=== PATIENT | male | born 1950 | race Caucasian/White ===

== ENCOUNTER 2018-10-12 08:32 | Inpatient (IN) ==
[2018-10-12] MEDS ORDERED: IPRATROPIUM/ALBUTEROL 3 ML AMPUL.NEB NEB ONE ×2 (08:38→11:39)
[2018-10-12] MEDS ORDERED: PIPERACILLIN SODIUM/TAZOBACTAM 3.375 GM in DEXTROSE 5% IN WATER 50 ML IV ONE ×2 (08:54→16:30)
[2018-10-12] MEDS ORDERED: VANCOMYCIN 1,000 MG in 0.9 % SODIUM CHLORIDE 250 ML IV ONE (08:55)
[2018-10-12] MEDS ORDERED: 0.9 % SODIUM CHLORIDE 1,000 ML IV ONE (09:27)
--- NOTE | 2018-10-12 09:44 | Emergency Department Note ---
Altered Mental Status HPI - General Chief Complaint: Altered Mental Status Stated Complaint: Confusion Time Seen by Provider: 10/12/18 09:25 Source: patient, family Mode of arrival: wheelchair Limitations: no limitations - History of Present Illness HPI Narrative: On 10/10/2018 patient did have ureteroscopy, removal of bladder stone, ureteroureterostomy and left-sided stent. Patient had a stone with difficult extraction resulting in an injury to the ureter. Ureter was primarily repaired with excision of the injured portion and anastomosis. Patient did well postop day 1 however presents emergency department today with complaint of altered mentation confusion hypoxia. Patient was some pain control issues using hydrocodone and oxycodone. 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) Timing confirmed by: spouse Severity: severe Consistency of Symptoms: waxing and waning Context: other (recent surgery/recent new narcotic medication) Associated symptoms: Reports: cough, weakness, other (disoriented and confused, sleepy) - Related Data Home Medications Medication Instructions Recorded Confirmed atorvastatin 40 mg tablet 40 mg PO QDAY 12/15/15 10/03/18 meloxicam 15 mg tablet 15 mg PO QDAY 12/15/15 10/03/18 pantoprazole 40 mg tablet,delayed 40 mg PO QDAY 12/15/15 10/10/18 release fluticasone propionate 50 2 spray INTRANASAL QDAY PRN 03/27/18 10/03/18 mcg/actuation nasal spray,suspension lorazepam 2 mg tablet 2 mg SUBLINGUAL HS tab 03/27/18 10/03/18 propranolol 40 mg tablet 40 mg PO BID tab 03/27/18 10/10/18 terazosin 5 mg capsule 5 mg PO DAILY 03/27/18 10/03/18 zolpidem 5 mg tablet 12.5 mg PO HSP PRN tab 03/27/18 10/03/18 albuterol sulfate 90 mcg/actuation 1 inh INHALATION Q4H 07/31/18 10/03/18 breath activated powder inhaler RX: Fluticasone Hfa 110Mcg 1 puff INH DAILY 10/03/18 10/03/18 [Flovent Hfa 110Mcg] Previous Rx's Medication Instructions Recorded Combivent Respimat 20 mcg-100 1 puff INHALATION QID #4 g NS 05/08/18 mcg/actuation solution for inhalation cephalexin 500 mg capsule 500 mg PO BID #10 cap 10/11/18 oxycodone-acetaminophen 5 mg-325 1 tab PO Q4H #25 tab 10/11/18 mg tablet Allergies Allergy/AdvReac Type Severity Reaction Status Date / Time No Known Drug Allergies Allergy Verified 10/12/18 08:33 Review of Systems Constitutional: Denies: fever, chills Eyes: Denies: vision change ENT ED: Denies: ear pain, throat pain Cardiovascular: Denies: chest pain, palpitations Respiratory: Denies: cough, shortness of breath Gastrointestinal: Denies: abdominal pain, nausea, vomiting Genitourinary: Denies: dysuria, frequency Musculoskeletal: Denies: back pain, joint swelling Integumentary: Denies: rash, lesions Neurological: Denies: headache, weakness Psychiatric: Denies: anxiety, depression Endocrine: Denies: fatigue, heat or cold intolerance Hematological/Lymphatic: Denies: easy bleeding, easy bruising Past Medical History - Past Medical History [facility] Narrative: Family History (Last Reviewed 10/02/18 @ 11:03 by Toma Gamino CMA) Father Diabetes Heart attack Mother Emphysema of lung Medical History (Last Reviewed 10/02/18 @ 11:03 by Toma Gamino CMA) Hypoxia (Chronic) Dupuytren's contracture (Chronic) Atherosclerosis (Chronic) Nocturia (Chronic) Acute severe vertigo (Chronic) Conjunctivitis (Chronic) Sinusitis (Chronic) Decreased hearing (Chronic) Tremor (Chronic) Generalized headaches (Chronic) Plantar fibromatosis (Chronic) Screening for malignant neoplasm of prostate (Chronic) Screening for malignant neoplasm of colon (Chronic) Osteopenia (Chronic) Abdominal pain (Chronic) AMY on CPAP (Chronic) Tobacco use (Chronic) Excessive sputum (Chronic) Wheezing (Chronic) SOB (shortness of breath) on exertion (Chronic) Alcoholism (Chronic) Urinary incontinence (Chronic) Indigestion (Chronic) Trouble in sleeping (Chronic) Fatigue (Chronic) SOB (shortness of breath) (Chronic) Shoulder pain (Chronic) Anxiety (Chronic) BPH (benign prostatic hyperplasia) (Chronic) AMY (obstructive sleep apnea) (Chronic) Erectile dysfunction (Chronic) COPD (chronic obstructive pulmonary disease) (Chronic) Bronchitis (Chronic) Insomnia (Chronic) Pancreatitis (Chronic) Joint pain (Chronic) Insomnia (Chronic) Hyperlipidemia (Chronic) Hypertension, essential (Chronic) Asthma (Chronic) Acid reflux (Chronic) All Active Problems (Last Reviewed 10/02/18 @ 11:03 by Toma Gamino CMA) Hypoxia (Chronic) Dupuytren's contracture (Chronic) Atherosclerosis (Chronic) Nocturia (Chronic) Acute severe vertigo (Chronic) Conjunctivitis (Chronic) Sinusitis (Chronic) Decreased hearing (Chronic) Tremor (Chronic) Generalized headaches (Chronic) Plantar fibromatosis (Chronic) Screening for malignant neoplasm of prostate (Chronic) Screening for malignant neoplasm of colon (Chronic) Osteopenia (Chronic) Abdominal pain (Chronic) Kidney stone on right side (Acute) AMY on CPAP (Chronic) Tobacco use (Chronic) Excessive sputum (Chronic) Wheezing (Chronic) SOB (shortness of breath) on exertion (Chronic) Alcoholism (Chronic) Urinary incontinence (Chronic) Indigestion (Chronic) Trouble in sleeping (Chronic) Fatigue (Chronic) SOB (shortness of breath) (Chronic) Shoulder pain (Chronic) Anxiety (Chronic) BPH (benign prostatic hyperplasia) (Chronic) AMY (obstructive sleep apnea) (Chronic) Erectile dysfunction (Chronic) COPD (chronic obstructive pulmonary disease) (Chronic) Bronchitis (Chronic) Insomnia (Chronic) Acute exacerbation of chronic obstructive airways disease (Chronic) Alcohol withdrawal syndrome (Chronic) Pancreatitis (Chronic) Joint pain (Chronic) Insomnia (Chronic) Hyperlipidemia (Chronic) Hypertension, essential (Chronic) Asthma (Chronic) Acid reflux (Chronic) Past Surgical History (Last Updated 10/02/18 @ 11:03 by Toma Gamino CMA) History of appendectomy (Acute) H/O colonoscopy (Chronic) History of carpal tunnel release (Chronic) Medical history: Reports: COPD, DM, GERD, hyperlipidemia, hypertension, other (obstructive sleep apnea on CPAP, pancreatitis, BPH) Surgical history ED: Reports: orthopedic, other (carpal tunnel) - Social History smoking status: Current every day smoker Alcohol use: Reports: Occasionally Drug use: Reports: none Physical Exam Limitations: no limitations, other (pt is sleepy on exam dozing off but wakes with full attentiveness) General appearance: alert, in distress (tachypnea) Head: atraumatic, normocephalic Eye: Present: normal appearance, PERRL, EOMI. Absent: scleral icterus, conjunctival injection ENT: normal oropharynx, mucous membranes moist Neck: Present: trachea midline. Absent: lymphadenopathy, thyromegaly Chest: Present: symmetric chest wall rise Respiratory: Present: respiratory distress, rales/crackles (diffusely). Absent: normal lung sounds bilaterally, wheezes, stridor, accessory muscle use, prolonged expiratory phase Cardiovascular: Present: regular rate, normal rhythm. Absent: systolic murmur, diastolic murmur Abdominal: Present: soft, tenderness (left flank). 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 Patient did have some increase in his pain however he was not as confused alert did not seem quite so somnolent. CTA of his chest did not demonstrate pulmonary embolism or other acute emergent process in his chest. Patient's initial hypoxia at 86% and treated with supplemental oxygen by nonrebreather did resolve significantly and pt was on his routine 3L NC with good saturations. CT abdomen/pelvis was obtained and demonstrated double J ureteral stent was with distal curl in the bladder and proximal curl outside. Patient had return of normal mentation after Narcan however also was accompanied by pain. Family members present concerned about his pain level and with our concern for respiratory depression patient was placed on BiPAP and given Dilaudid/Ativan. Patient also given additional DuoNeb which he is already had 1 of those earlier today. Patient doing well on BiPAP. Patient was with some hypertension during stay this was controlled with pain medication primarily however 10 mg of labetalol was provided to reduce his blood pressure and patient had excellent vital signs during stay in the emergency department. Patient did not have fever or other signs or symptoms of sepsis. After he had pain control and BiPAP placed patient was checked on regularly and noted to have a easily arousable and interactive patient stating he was not in acute pain most recent check 15:30 and was pain free and easily arousable. Pt with ongoing excellent urine output. Vital Signs Temperature 98.4 F 10/12/18 08:33 Pulse Rate 96 H 10/12/18 08:33 Respiratory Rate 20 07/27/19 08:33 Blood Pressure 151/80 07/27/19 08:33 Pulse Oximetry (%) 88 L 10/12/18 08:33 Temperature 103.5 F H 10/12/18 18:06 Pulse Rate 111 H 10/12/18 18:06 Respiratory Rate 16 10/12/18 18:06 Blood Pressure 150/73 10/12/18 18:06 Pulse Oximetry (%) 93 10/12/18 18:06 Altered Mental Status - [facility] Narrative Medical decision making narrative: 68-year-old male presenting with a chief complaint of altered mental status confusion. Patient with recent stent and stone removal yesterday. Patient then placed on combination of hydrocodone and oxycodone resulting in some difficulty controlling pain yesterday evening he took 2 oxycodone right before bed woke up this morning confused having some incontinence. Also concern for difficulty breathing feeling like he could not get enough air. Symptoms have since improved since he woke up this morning. At time of evaluation patient was sleeping he really did not want to stay awake during the initial history and physical basically dozing off intermittently. Patient was complaining of pain. Patient noted to have malposition of a urinary stent after intervention 2 days ago discussed case with urology and Dr. Fox will return to the area to definitively address his issue today. Also discussed the case with Dr. Hyman and he was also willing to accept at [facility] if emergent transfer was necessary. Patient did develop fever while in the emergency department. Patient with defined atelectasis on CT angiogram chest. Dr. Fox presented to the emergency department as quickly as he possibly could and evaluated the patient. We were able to hemodynamically stabilize the patient during his time in the ED. Patient did develop a fever right at the very end of his stay. Patient had received 2 doses of Zosyn as well as vancomycin during this interval. Patient interviewed and examined and CT scan reviewed by Dr. Fox and our consensus medical opinion at this time is that patient most likely has findings secondary to postoperative atelectasis, and excessive narcotic use at home. Patient does have position alteration of his stent and will be taken to the operating room for stent replacement. - Differential Diagnosis Likely: altered mental status, delirium. Unlikely: alcoholic intoxication, dementia, hypoglycemia, hyponatremia, subarachnoid hemorrhage, sepsis - Lab Data Result diagrams: 10/12/18 17:25 10/12/18 16:43 Lab Results 10/12/18 10/12/18 10/12/18 Range/Units 08:49 08:49 08:50 WBC 9.2 (4.5-11.0) K/mcL RBC 3.76 L (4.50-5.90) M/mcL Hgb 11.7 L (13.5-16.5) g/dL Hct 35.3 L (41.0-55.0) % MCV 93.8 (80.0-100.0) fL MCH 31.2 (26.0-34.0) pg MCHC 33.2 (31.0-36.0) g/dL RDW 13.5 (11.5-14.5) % Plt Count 199 (140-440) K/mcL MPV 8.3 (7.4-10.4) fL Gran % 70.9 (38.0-78.0) % Lymph % (Auto) 14.3 L (15.5-49.0) % [place] % (Auto) 11.9 (1.0-12.0) % Eos % (Auto) 2.7 (0.0-7.0) % Baso % (Auto) 0.2 (0.0-2.0) % Gran # 6.6 (1.8-8.0) K/mcL Lymph # (Auto) 1.3 L (1.5-4.8) K/mcL [place] # (Auto) 1.1 H (0.1-0.9) K/mcL Eos # (Auto) 0.2 (0.0-0.7) K/mcL Baso # (Auto) 0 (0.0-0.3) K/mcL VBG Lactic Acid (0.5-2.0) mmol/L Sodium 139 (133-145) mmol/L Potassium 3.8 (3.3-5.1) mmol/L Chloride 102 (96-108) mmol/L Carbon Dioxide 30 (22-30) mmol/L Anion Gap 7.0 L (8-16) BUN 16 (8-23) mg/dl Creatinine 0.9 (0.7-1.2) mg/dl GFR Calculation 87 Glucose 128 H (70-105) mg/dL Calcium 8.8 (8.6-10.4) mg/dl Total Bilirubin 0.6 (0.0-1.0) mg/dL AST 22 (0-37) U/l ALT 8 (0-40) U/l Alkaline Phosphatase 73 (39-117) U/L Total Protein 6.2 (5.9-8.4) gm/dL Albumin 3.5 (3.2-5.2) gm/dL Globulin 2.7 (2.2-3.7) gm/dL Albumin/Globulin Ratio 1.3 (1.0-2.3) Procalcitonin < 0.05 (<0.10) ng/mL Urine Color Urine Appearance Urine pH (5.0-9.0) Ur Specific [place]land (1.000-1.035) Urine Protein (NEG) mg/dL Urine Glucose (UA) (NEG) mg/dL Urine Ketones (NEG) mg/dL Urine Occult Blood (<0.03) mg/dL Urine Nitrate (NEG) Urine Bilirubin (NEG) mg/dL Urine Urobilinogen (NEG) mg/dL Ur Leukocyte Esterase (NEG) /uL Urine RBC (0-1) /hpf Urine WBC (0-4) /hpf Ur Squamous Epith Cells (0-4) /hpf Urine Bacteria (0) /hpf Urine Mucus (0) /hpf Ur Culture Indicated? 10/12/18 10/12/18 10/12/18 Range/Units 09:10 10:55 16:43 WBC (4.5-11.0) K/mcL RBC (4.50-5.90) M/mcL Hgb (13.5-16.5) g/dL Hct (41.0-55.0) % MCV (80.0-100.0) fL MCH (26.0-34.0) pg MCHC (31.0-36.0) g/dL RDW (11.5-14.5) % Plt Count (140-440) K/mcL MPV (7.4-10.4) fL Gran % (38.0-78.0) % Lymph % (Auto) (15.5-49.0) % [place] % (Auto) (1.0-12.0) % Eos % (Auto) (0.0-7.0) % Baso % (Auto) (0.0-2.0) % Gran # (1.8-8.0) K/mcL Lymph # (Auto) (1.5-4.8) K/mcL [place] # (Auto) (0.1-0.9) K/mcL Eos # (Auto) (0.0-0.7) K/mcL Baso # (Auto) (0.0-0.3) K/mcL VBG Lactic Acid 0.5 (0.5-2.0) mmol/L Sodium 140 (133-145) mmol/L Potassium 3.7 (3.3-5.1) mmol/L Chloride 101 (96-108) mmol/L Carbon Dioxide 29 (22-30) mmol/L Anion Gap 10.0 (8-16) BUN 12 (8-23) mg/dl Creatinine 0.8 (0.7-1.2) mg/dl GFR Calculation 91 Glucose 96 (70-105) mg/dL Calcium 8.8 (8.6-10.4) mg/dl Total Bilirubin 1.0 (0.0-1.0) mg/dL AST 25 (0-37) U/l ALT 7 (0-40) U/l Alkaline Phosphatase 73 (39-117) U/L Total Protein 5.9 (5.9-8.4) gm/dL Albumin 3.3 (3.2-5.2) gm/dL Globulin 2.6 (2.2-3.7) gm/dL Albumin/Globulin Ratio 1.3 (1.0-2.3) Procalcitonin (<0.10) ng/mL Urine Color Red Urine Appearance Hazy Urine pH 6.0 (5.0-9.0) Ur Specific Inland 1.012 (1.000-1.035) Urine Protein 100 A (NEG) mg/dL Urine Glucose (UA) Negative (NEG) mg/dL Urine Ketones Neg (NEG) mg/dL Urine Occult Blood >=1.0 A (<0.03) mg/dL Urine Nitrate Neg (NEG) Urine Bilirubin Neg (NEG) mg/dL Urine Urobilinogen Neg (NEG) mg/dL Ur Leukocyte Esterase 250 A (NEG) /uL Urine RBC > 182 H (0-1) /hpf Urine WBC 96 H (0-4) /hpf Ur Squamous Epith Cells < 1 (0-4) /hpf Urine Bacteria 0 (0) /hpf Urine Mucus Few (0) /hpf Ur Culture Indicated? Yes 10/12/18 10/12/18 Range/Units 16:43 17:25 WBC 9.7 (4.5-11.0) K/mcL RBC 3.39 L (4.50-5.90) M/mcL Hgb 10.4 L (13.5-16.5) g/dL Hct 31.9 L (41.0-55.0) % MCV 94.2 (80.0-100.0) fL MCH 30.8 (26.0-34.0) pg MCHC 32.7 (31.0-36.0) g/dL RDW 13.0 (11.5-14.5) % Plt Count 189 (140-440) K/mcL MPV 8.2 (7.4-10.4) fL Gran % 82.2 H (38.0-78.0) % Lymph % (Auto) 7.3 L (15.5-49.0) % [place] % (Auto) 8.9 (1.0-12.0) % Eos % (Auto) 1.5 (0.0-7.0) % Baso % (Auto) 0.1 (0.0-2.0) % Gran # 8.0 (1.8-8.0) K/mcL Lymph # (Auto) 0.7 L (1.5-4.8) K/mcL [place] # (Auto) 0.9 (0.1-0.9) K/mcL Eos # (Auto) 0.1 (0.0-0.7) K/mcL Baso # (Auto) 0 (0.0-0.3) K/mcL VBG Lactic Acid 0.9 (0.5-2.0) mmol/L Sodium (133-145) mmol/L Potassium (3.3-5.1) mmol/L Chloride (96-108) mmol/L Carbon Dioxide (22-30) mmol/L Anion Gap (8-16) BUN (8-23) mg/dl Creatinine (0.7-1.2) mg/dl GFR Calculation Glucose (70-105) mg/dL Calcium (8.6-10.4) mg/dl Total Bilirubin (0.0-1.0) mg/dL AST (0-37) U/l ALT (0-40) U/l Alkaline Phosphatase (39-117) U/L Total Protein (5.9-8.4) gm/dL Albumin (3.2-5.2) gm/dL Globulin (2.2-3.7) gm/dL Albumin/Globulin Ratio (1.0-2.3) Procalcitonin (<0.10) ng/mL Urine Color Urine Appearance Urine pH (5.0-9.0) Ur Specific [place] (1.000-1.035) Urine Protein (NEG) mg/dL Urine Glucose (UA) (NEG) mg/dL Urine Ketones (NEG) mg/dL Urine Occult Blood (<0.03) mg/dL Urine Nitrate (NEG) Urine Bilirubin (NEG) mg/dL Urine Urobilinogen (NEG) mg/dL Ur Leukocyte Esterase (NEG) /uL Urine RBC (0-1) /hpf Urine WBC (0-4) /hpf Ur Squamous Epith Cells (0-4) /hpf Urine Bacteria (0) /hpf Urine Mucus (0) /hpf Ur Culture Indicated? Critical Care Time Critical Care Time: Yes Total Critical Care Time: 120 Attestation: This critical care time was direct patient care exclusive of other procedures. Disposition Pt seen by [employer]/PA only: No Clinical Impression: Displacement of other urinary stents, initial encounter, Narcotic abuse, episodic, Ureteral stent displacement Altered mental status Qualifiers: Altered mental status type: somnolence Qualified Code(s): R40.0 - Somnolence Disposition: Xfer As Inpt ([facility]) Condition: Serious
[2018-10-12 09:48] LABS: Basophils # (Auto) 0 K/mcL (0.0-0.3); Basophils % (Auto) 0.2 % (0.0-2.0); Eosinophils # (Auto) 0.2 K/mcL (0.0-0.7); Eosinophils % (Auto) 2.7 % (0.0-7.0); Granulocytes % (Auto) 70.9 % (38.0-78.0); Hematocrit 35.3 % (41.0-55.0); Hemoglobin 11.7 g/dL (13.5-16.5); Lymphocytes # (Auto) 1.3 K/mcL (1.5-4.8); Lymphocytes % (Auto) 14.3 % (15.5-49.0); Mean Cell Volume 93.8 fL (80.0-100.0); Mean Corpuscular HGB Conc 33.2 g/dL (31.0-36.0); Mean Platelet Volume 8.3 fL (7.4-10.4); Monocytes # (Auto) 1.1 K/mcL (0.1-0.9); Monocytes % (Auto) 11.9 % (1.0-12.0); Platelet Count 199 K/mcL (140-440); RBC 3.76 M/mcL (4.50-5.90); Red Cell Distribution Width 13.5 % (11.5-14.5); WBC 9.2 K/mcL (4.5-11.0)
[2018-10-12 10:11] LABS: ALT/SGPT 8 U/l (0-40); AST/SGOT 22 U/l (0-37); Albumin 3.5 gm/dL (3.2-5.2); Albumin/Globulin Ratio 1.3 (1.0-2.3); Alkaline Phosphatase 73 U/L (39-117); Bilirubin,Total 0.6 mg/dL (0.0-1.0); Blood Urea Nitrogen 16 mg/dl (8-23); Calcium 8.8 mg/dl (8.6-10.4); Carbon Dioxide 30 mmol/L (22-30); Chloride 102 mmol/L (96-108); Globulin 2.7 gm/dL (2.2-3.7); Glomerular Filtration Rate 87; Glucose 128 mg/dL (70-105)
[2018-10-12 11:36] LABS: Appearance,Urine HAZY; Bacteria,Urine 0 /hpf (0); Bilirubin,Urine NEG (NEG); Color,Urine RED; Culture Indicated,Urine YES; Glucose,Urine (UA) NEGATIVE (NEG); Ketones,Urine NEG (NEG); Leukocyte Esterase,Urine 250 /uL (NEG); Mucus,Urine FEW /hpf (0); Nitrate,Urine NEG (NEG); Protein,Urine 100 mg/dL (NEG); Specific Gravity,Urine 1.012 (1.000-1.035); Urine Blood >=1.0 mg/dL (<0.03); Urine RBC > 182 /hpf (0-1); Urine Squamous Epithelial Cell < 1 /hpf (0-4); Urine WBC 96 /hpf (0-4); Urobilinogen,Urine NEG (NEG)
[2018-10-12] MEDS ORDERED: NALOXONE HCL 0.4 MG/ML VIAL IV ONE (11:45)
[2018-10-12] MEDS ORDERED: HYDROmorphone 2 MG/ML VIAL IV PRN (13:36)
[2018-10-12] MEDS ORDERED: LORazepam 2 MG/ML VIAL IV ONE (14:03)
[2018-10-12] MEDS ORDERED: HYDROmorphone 2 MG/ML VIAL IV SCH (14:15)
[2018-10-12] MEDS ORDERED: LABETALOL 5 MG/ML ML IV ONE ×3 (14:17→15:51)
[2018-10-12] MEDS ORDERED: 0.9 % SODIUM CHLORIDE 1,000 ML IV SCH (16:30)
[2018-10-12] MEDS ORDERED: ACETAMINOPHEN 650 MG SUPP.RECT PR ONE (16:30)
--- NOTE | 2018-10-12 17:02 | XRay Report ---
HISTORY: Shortness of breath FINDINGS: The lungs are mildly hyperinflated due to emphysema. Subtle interstitial infiltrates are present adjacent to both diaphragms, left worse than right. There is no lobar consolidation. The heart size is normal. No adenopathy is detected. IMPRESSION: COPD with superimposed mild pneumonia in both lung bases Interpreted and Authenticated by: Karan Miller 10/12/18
--- NOTE | 2018-10-12 17:08 | Cat Scan Report ---
History: Hypoxia and sepsis, recent surgery with possible pulmonary emboli TECHNIQUE: Following injection of intravenous nonionic contrast images were acquired during the pulmonary artery phase. Sagittal, coronal and axial MIPS images were created. The radiation exposure was limited using dose reduction technology. FINDINGS: The pulmonary arteries are normal without evidence of pulmonary emboli. Mild centrilobular emphysema is present, predominantly involving the upper lobes but there is also involvement in the lingula right middle lobe and superior segments of both lower lobes. There are streaky alveolar opacities in the posterior lung bases bilaterally extending into the lateral basal segment of the left side. The consolidation has worsened the left lung than on the right side. There is no evidence of an underlying mass. No abscess or abnormally enlarged lymph nodes are present. There is a trace amount pleural fluid bilaterally. The heart is normal in size and contour. There are scattered calcified plaques in left anterior descending coronary artery. IMPRESSION: Mild bibasilar pneumonia and/or atelectasis Emphysema No evidence of pulmonary emboli Interpreted and Authenticated by: Karan Miller 10/12/18
[2018-10-12] MEDS: HYDROmorphone 2 MG/ML VIAL IV ONE ×2 (17:10)
--- NOTE | 2018-10-12 17:25 | Cat Scan Report ---
History: Abdominal pain and status post recent insertion of a ureteral stent for kidney stones TECHNIQUE: The patient was imaged following the preceding CT scan which was performed using intravenous contrast. No additional contrast was administered for the separate abdomen CT. Patient was scanned from the diaphragm to the symphysis pubis. Sagittal and coronal reformats are created. The radiation exposure was limited using dose reduction technology. FINDINGS: There is a small streaky infiltrates in both lung bases, left worse than right. There are very small bilateral pleural effusions. The liver and spleen are normal in size and homogeneous. The gallbladder and bile ducts are normal. There is no evidence of mass or inflammation the pancreas. The adrenals are normal and symmetric. There is contrast in the collecting system in both kidneys following the prior chest CT with contrast. The contrast obscures the small calyceal stones seen in both kidneys on the prior unenhanced CT done on 09/24/18. There is no hydronephrosis in the right side. There is mild fullness of the renal collecting on the left side. Patient has a double pigtail left-sided ureteral stent. The proximal end of the stent has perforated the ureter and lies adjacent to the ureteropelvic junction. There is a small irregularly-shaped urinoma at this site. It measures 2.6 cm in greatest AP dimension and 6.2 cm in greatest length. There is moderate stranding of the perirenal fat and thickening of Gerota's fascia. Most of the excreted contrast in the left kidney passes through the left ureter into the bladder. The ureter is decompressed. The distal in the left ureteral stent is in the right lower bladder. The bladder wall is smooth without evidence of mass or inflammation. Prostate is mildly enlarged. Seminal vesicles are normal. There are multiple noninflamed diverticula in the descending and sigmoid colon. The bowel pattern is otherwise normal. The patient has a right inguinal hernia. Within the inguinal canal there is an oval homogeneous nodule which measures 1.5 x 1.9 cm. The scrotum is outside of field of view. I cannot determine whether the nodule is an undescended testis or another structure. There is no entrapment of bowel within the hernia. IMPRESSION: Proximal end of the left ureteral stent has perforated the wall of the ureter at the level of the ureteropelvic junction. Surrounding this there is a small urinoma.. There is no significant hydronephrosis. Interpreted and Authenticated by: Karan Miller 10/12/18
[2018-10-12 17:35] LABS: ALT/SGPT 7 U/l (0-40); AST/SGOT 25 U/l (0-37); Albumin 3.3 gm/dL (3.2-5.2); Albumin/Globulin Ratio 1.3 (1.0-2.3); Alkaline Phosphatase 73 U/L (39-117); Blood Urea Nitrogen 12 mg/dl (8-23); Calcium 8.8 mg/dl (8.6-10.4); Carbon Dioxide 29 mmol/L (22-30); Chloride 101 mmol/L (96-108); Globulin 2.6 gm/dL (2.2-3.7); Glomerular Filtration Rate 91; Glucose 96 mg/dL (70-105)
--- NOTE | 2018-10-12 17:57 | Cat Scan Report ---
History: Increased confusion TECHNIQUE: The brain was imaged without contrast at 2.5 mm intervals. Many of the images had to be repeated on account patient motion artifact. The radiation exposure was limited using dose reduction technology. FINDINGS: There is mild generalized cerebral atrophy. There is no evidence of infarct, hemorrhage or mass effect. The ventricles and cisterns are normal. No abnormal extra-axial fluid collection is present. The bone windows show no skull lesion. IMPRESSION: Mild atrophy and no acute abnormality Interpreted and Authenticated by: Karan Miller 10/12/18
[2018-10-12] MEDS ORDERED: LIDOCAINE HCL/PF 100 MG/5 ML SYRINGE IV ONE (18:00)
[2018-10-12] MEDS ORDERED: DEXAMETHASONE 10 MG/ML VIAL IV ONE (18:00)
[2018-10-12] MEDS ORDERED: ROCURONIUM 10 MG/ML ML IV ONE (18:00)
[2018-10-12] MEDS ORDERED: fentaNYL 100 MCG/2 ML VIAL IV ONE (18:00)
[2018-10-12] MEDS ORDERED: SUCCINYLCHOLINE 20 MG/ML ML IV ONE (18:00)
[2018-10-12] MEDS ORDERED: PROPOFOL 200 MG/20 ML VIAL IV ONE (18:00)
[2018-10-12] MEDS ORDERED: MIDAZOLAM 5 MG/5 ML VIAL IV ONE (18:00)
[2018-10-12 18:01] LABS: Basophils # (Auto) 0 K/mcL (0.0-0.3); Basophils % (Auto) 0.1 % (0.0-2.0); Eosinophils # (Auto) 0.1 K/mcL (0.0-0.7); Eosinophils % (Auto) 1.5 % (0.0-7.0); Granulocytes % (Auto) 82.2 % (38.0-78.0); Hematocrit 31.9 % (41.0-55.0); Hemoglobin 10.4 g/dL (13.5-16.5); Lymphocytes # (Auto) 0.7 K/mcL (1.5-4.8); Lymphocytes % (Auto) 7.3 % (15.5-49.0); Mean Cell Volume 94.2 fL (80.0-100.0); Mean Corpuscular HGB Conc 32.7 g/dL (31.0-36.0); Mean Platelet Volume 8.2 fL (7.4-10.4); Monocytes # (Auto) 0.9 K/mcL (0.1-0.9); Monocytes % (Auto) 8.9 % (1.0-12.0); Platelet Count 189 K/mcL (140-440); RBC 3.39 M/mcL (4.50-5.90); WBC 9.7 K/mcL (4.5-11.0)
--- NOTE | 2018-10-12 18:11 | Internal Medicine Consult Note ---
Medical - CN: HPI - Data of Consult Primary Care Provider: Clayton Lindsey - Consult Narrative Reason for consult: icu mgmnt History of present illness: Mr. Gayle is a 68 year old M Who recently underwent left ureteroscopy with laser lithotripsy left stent placement on . He was feeling fine on Sunday went to bed feeling okay per his girlfriend. History is obtained from the girlfriend as patient is currently on BiPAP. Danika states that in the middle the night he was in a lot of pain so he took a couple tablets of his pain medication and went back to bed. In the morning his girlfriend noted he slept little bit longer than usual and when she finally woke him up he was confused disoriented. He had no other complaints other than the pain after surgery. His girlfriend also noted that he appeared to have difficulty breathing. One point stated that he was short of breath. In the ED he did receive Narcan and had showed improvement with his confusion. He was alert and oriented per staff notes. Did have some increased pain after the Narcan given. Work-up included CTA chest which showed no pulmonary embolism, did show some st reaky alveolar opacities in the posterior lungs extending into the lateral basal segment of left side infiltrate worse on the left side. Initially patient was hypoxic at 86% but did resolve on nonrebreather and the patient placed back on 3 L nasal cannula. However patient continued to have pain which appeared to concern the family quite a bit. Patient was subsequently placed on BiPAP given concern for respiratory depression while pain medications provided. In the ED patient was febrile and tachycardic blood pressure was elevated initially, no episodes of hypotension. ABG with CO2 retention and mild acidosis. Lactic acid was okay. Dr. Jenkins was contacted initially and will take the patient back today to correct the malposition stent. I discussed case with Dr. Jenkins. Also discussed case with anesthesia given his current respiratory status the plan is for ET tube placement intraoperatively and to leave him on the mechanical ventilator overnight. Review of Systems: Pertinent positives as above. Denies headache/fever/chills/nausea/vomiting/chest or abdominal pain/cough/diarrhea. Many 10 point review of system reviewed negative CC: Medical - CN: PMH Medical history: Medical History (Last Reviewed 10/02/18 @ 11:03 by Toma Gamino CMA) Hypoxia (Chronic) Dupuytren's contracture (Chronic) Atherosclerosis (Chronic) Nocturia (Chronic) Acute severe vertigo (Chronic) Conjunctivitis (Chronic) Sinusitis (Chronic) Decreased hearing (Chronic) Tremor (Chronic) Generalized headaches (Chronic) Plantar fibromatosis (Chronic) Screening for malignant neoplasm of prostate (Chronic) Screening for malignant neoplasm of colon (Chronic) Osteopenia (Chronic) Abdominal pain (Chronic) AMY on CPAP (Chronic) Tobacco use (Chronic) Excessive sputum (Chronic) Wheezing (Chronic) SOB (shortness of breath) on exertion (Chronic) Alcoholism (Chronic) Urinary incontinence (Chronic) Indigestion (Chronic) Trouble in sleeping (Chronic) Fatigue (Chronic) SOB (shortness of breath) (Chronic) Shoulder pain (Chronic) Anxiety (Chronic) BPH (benign prostatic hyperplasia) (Chronic) AMY (obstructive sleep apnea) (Chronic) Erectile dysfunction (Chronic) COPD (chronic obstructive pulmonary disease) (Chronic) Bronchitis (Chronic) Insomnia (Chronic) Pancreatitis (Chronic) Joint pain (Chronic) Insomnia (Chronic) Hyperlipidemia (Chronic) Hypertension, essential (Chronic) Asthma (Chronic) Acid reflux (Chronic) Past Surgical History (Last Updated 10/02/18 @ 11:03 by Toma Gamino CMA) History of appendectomy (Acute) H/O colonoscopy (Chronic) History of carpal tunnel release (Chronic) Family History (Last Reviewed 10/02/18 @ 11:03 by Toma Gamino CMA) Father Diabetes Heart attack Mother Emphysema of lung Social History (Last Updated 10/02/18 @ 11:35 by Robert Jenkins MD) 1 pack/day of cigarettes No alcohol use Lives at home alone, but girlfriend over to house quite a bit Medical - CN: Meds Home Medications Medication Instructions Recorded Confirmed Type atorvastatin 40 mg tablet 40 mg PO QDAY 12/15/15 10/03/18 History meloxicam 15 mg tablet 15 mg PO QDAY 12/15/15 10/03/18 History pantoprazole 40 mg tablet,delayed 40 mg PO QDAY 12/15/15 10/10/18 History release fluticasone propionate 50 2 spray INTRANASAL QDAY PRN 03/27/18 10/03/18 History mcg/actuation nasal spray,suspension lorazepam 2 mg tablet 2 mg SUBLINGUAL HS tab 03/27/18 10/03/18 History propranolol 40 mg tablet 40 mg PO BID tab 03/27/18 10/10/18 History terazosin 5 mg capsule 5 mg PO DAILY 03/27/18 10/03/18 History zolpidem 5 mg tablet 12.5 mg PO HSP PRN tab 03/27/18 10/03/18 History Combivent Respimat 20 mcg-100 1 puff INHALATION QID #4 g NS 05/08/18 10/03/18 Rx mcg/actuation solution for inhalation albuterol sulfate 90 mcg/actuation 1 inh INHALATION Q4H 07/31/18 10/03/18 History breath activated powder inhaler Fluticasone Hfa 110Mcg [Flovent 1 puff INH DAILY 10/03/18 10/03/18 History Hfa 110Mcg] cephalexin 500 mg capsule 500 mg PO BID #10 cap 10/11/18 Rx oxycodone-acetaminophen 5 mg-325 1 tab PO Q4H #25 tab 10/11/18 Rx mg tablet Allergies Allergy/AdvReac Type Severity Reaction Status Date / Time No Known Drug Allergies Allergy Verified 10/12/18 08:33 Medical - CN: Exam - Constitutional Vitals: Temp Pulse Resp BP Pulse Ox 103.5 F H 109 H 17 185/94 93 10/12/18 16:57 10/12/18 17:46 10/12/18 17:46 10/12/18 17:32 10/12/18 17:46 Exam: General: Alert, Awake, No acute Distress at this time on bipap Eyes/N/T: EOMI, PEERL, Head/Neck: neck supple, normocephalic atraumatic CV: Tachycardic but regular, No murmurs, Pulm: Clear laterally, ventilating with BiPAP Abd: soft, nontender, +BS x4 Ext: no clubbing/cyanosis/edema Neuro: Alert, no focal deficits, moves all extremities, CN 2-12 grossly intact, symmetrical strength b/l upper/lower, sensations intact b/l upper/lower Skin: warm/dry Medical - CN: Result - Labs CBC & Chem 7: 10/12/18 17:25 10/12/18 16:43 Labs: Short CBC 10/12/18 10/12/18 Range/Units 08:50 17:25 WBC 9.2 9.7 (4.5-11.0) K/mcL Hgb 11.7 L 10.4 L (13.5-16.5) g/dL Hct 35.3 L 31.9 L (41.0-55.0) % Plt Count 199 189 (140-440) K/mcL BMP 10/12/18 10/12/18 08:49 16:43 Sodium 139 140 Potassium 3.8 3.7 Chloride 102 101 Carbon Dioxide 30 29 BUN 16 12 Creatinine 0.9 0.8 Glucose 128 H 96 Calcium 8.8 8.8 Liver Function 10/12/18 10/12/18 Range/Units 08:49 16:43 Total Bilirubin 0.6 1.0 (0.0-1.0) mg/dL AST 22 25 (0-37) U/l ALT 8 7 (0-40) U/l Alkaline Phosphatase 73 73 (39-117) U/L Albumin 3.5 3.3 (3.2-5.2) gm/dL Urine 10/12/18 Range/Units 10:55 Urine Color Red Urine Appearance Hazy Urine pH 6.0 (5.0-9.0) Ur Specific [place] 1.012 (1.000-1.035) Urine Protein 100 A (NEG) mg/dL Urine Glucose (UA) Negative (NEG) mg/dL - Impressions CTA no PE mild infiltrates worse on the left base Medical - CN: A/P - Narrative A/P Narrative: A: *Sepsis 2/2 source: - *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 Jenkins for stent revision -Weaning trial in the morning with sedation vacation -f/u ABG -nebs -Zosyn -BC/UC pending -f/u AM CXR - -Smoking cessation counseling -ppx: Heparin
[2018-10-12] MEDS ORDERED: ONDANSETRON 4 MG/2 ML VIAL IV PRN (18:22)
[2018-10-12] MEDS ORDERED: NITROGLYCERIN 0.4 MG TAB.SUBL SL PRN (18:22)
[2018-10-12] MEDS ORDERED: MAGNESIUM HYDROXIDE 30 ML ORAL.SUSP PO PRN (18:22)
[2018-10-12] MEDS ORDERED: fentaNYL 100 MCG/2 ML VIAL IV PRN (18:22)
[2018-10-12] MEDS ORDERED: LORazepam 2 MG/ML VIAL IV PRN (18:22)
[2018-10-12] MEDS ORDERED: NALOXONE HCL 0.4 MG/ML VIAL IV PRN (18:22)
[2018-10-12] MEDS ORDERED: ACETAMINOPHEN 650 MG SUPP.RECT PR PRN (18:22)
[2018-10-12] MEDS ORDERED: LABETALOL 5 MG/ML ML IV PRN (18:29)
[2018-10-12] MEDS ORDERED: hydrALAZINE 20 MG/ML VIAL IV PRN (18:29)
[2018-10-12] MEDS ORDERED: PROPOFOL 100 ML IV SCH (18:30)
[2018-10-12] MEDS ORDERED: IOPAMIDOL 100 ML BOTTLE IJ ONE (19:11)
[2018-10-12] MEDS: 0.9 % SODIUM CHLORIDE 1,000 ML IV SCH (19:30)
[2018-10-12] MEDS ORDERED: PROPOFOL 1,000 MG in PREMIX 1 BAG IV SCH (19:45)
[2018-10-12] MEDS: ACETAMINOPHEN 650 MG/65 ML BOTTLE IV PRN (20:00)
[2018-10-12] MEDS: IPRATROPIUM/ALBUTEROL 3 ML AMPUL.NEB NEB SCH (20:10)
[2018-10-12] MEDS: BUDESONIDE 0.5 MG/2 ML AMPUL.NEB NEB SCH (20:10)
[2018-10-12] MEDS ORDERED: PROPOFOL 100 ML IV ONE (20:20)
[2018-10-12] MEDS ORDERED: SENNOSIDES 1 TABLET PO PRN (21:00)
[2018-10-12] MEDS ORDERED: CHLORHEXIDINE GLUCONATE 1 ML ORAL.SOL SWABMOUTH SCH (21:00)
[2018-10-12] MEDS: DOCUSATE SODIUM 50 MG/5 ML ORAL.SOL PO SCH (22:10)
[2018-10-12] MEDS: 0.9 % SODIUM CHLORIDE 10 ML SYRINGE IV SCH (22:16)
[2018-10-12] MEDS: FAMOTIDINE/PF 20 MG/2 ML VIAL IV SCH (22:31)
[2018-10-12] MEDS: CHLORHEXIDINE GLUCONATE 1 ML ORAL.SOL SWABMOUTH SCH (22:32)
[2018-10-12] MEDS ORDERED: 0.9 % SODIUM CHLORIDE 250 ML IV SCH (23:00)
--- NOTE | 2018-10-12 23:55 | History and Physical Report ---
DATE OF ADMISSION: 10/12/2018 ADMITTING DIAGNOSIS: Left flank pain. HISTORY OF PRESENT ILLNESS: The patient is a 68-year-old gentleman who we took to the operating room on 10/10/2018. At that point, we tried to do ureteroscopy, but there was a perforation of the ureter. I could not cannulate the orifice and the ureteral orifice, and so an open ureteroureterostomy was performed. Postoperatively, he did well until this morning when he became confused, short of breath and was seen in the Emergency Room. He was given Narcan and seemed to recover and then was complaining of pain. They gave him some Dilaudid, again he became confused and was started on Narcan again. He has been running a fever. The exact cause of this is unknown. CT scan was performed which showed no abnormalities in the brain, but there was movement of the stent from the left side and it appears that it had migrated. He presents now for stent placement. PAST MEDICAL HISTORY: Significant for hypoxia, nocturia, conjunctivitis, tremor osteopenia, tobacco use, alcoholism. PAST SURGICAL HISTORY: Appendectomy, colonoscopy, carpal tunnel and a ureteroureterostomy. FAMILY HISTORY: Diabetes, heart attack ____. SOCIAL HISTORY: Single, retired, still smokes, is O2 dependent. CURRENT MEDICATIONS: Please see the nurse's notes. REVIEW OF SYSTEMS: Short of breath, slightly tachycardic. Cranial nerves II-XII grossly intact. He is able to urinate. Rest of review of systems is noncontributory. PHYSICAL EXAMINATION: GENERAL: This is a gentleman who is somewhat somnolent. VITAL SIGNS: Per nurse's notes. NECK: Supple. Trachea is midline. LUNGS: Decreased sounds in the bases. HEART: Slightly tachycardic. ABDOMEN: Soft. [place] are intact on the left flank. GENITOURINARY: Normal male anatomy. Testicles are down in normal position, normal size and consistency. Meatus is at the end of his penis. Prostate 40 grams, smooth, no nodules. EXTREMITIES: Without clubbing, cyanosis or edema. NEUROLOGIC: Intact. Cranial nerves II-XII intact. IMPRESSION: The patient with a migrated stent. I have talked to his girlfriend about this and feel that we should reposition this. We will attempt to do this endoscopically. If not, then we would have to do an open. Dr. Aaron has been notified and will help with his care afterwards. I did go over the procedure with he and his girlfriend and they understand. We will follow up after surgery. INESSA:bren Job ID: [id number] Doc ID: [id number] Robert Jenkins MD
[2018-10-13] MEDS: PIPERACILLIN SODIUM/TAZOBACTAM 3.375 GM in DEXTROSE 5% IN WATER 50 ML IV SCH ×5 (01:12→23:11)
[2018-10-13] MEDS: IPRATROPIUM/ALBUTEROL 3 ML AMPUL.NEB NEB SCH ×4 (01:41→18:55)
[2018-10-13] MEDS: ACETAMINOPHEN 650 MG/65 ML BOTTLE IV PRN ×3 (03:14→14:28)
[2018-10-13] MEDS: 0.9 % SODIUM CHLORIDE 10 ML SYRINGE IV SCH ×3 (05:18→20:39)
[2018-10-13] MEDS: BUDESONIDE 0.5 MG/2 ML AMPUL.NEB NEB SCH ×2 (07:28→18:55)
--- NOTE | 2018-10-13 07:55 | Internal Med Progress Note ---
Medical - PN: Subj Patient information: Note initiated : 10/13/18 at 7:50 am Service Date, if different from initiated Date: [] Patient: Chadd Gayle a 68 y/o M admitted on 10/12/18 for Confusion. Chief Complaint: [] Interval history: Mr. Gayle is a 68 year old M Who recently underwent left ureteroscopy with laser lithotripsy left stent placement on . He was feeling fine on Sunday went to bed feeling okay per his girlfriend. History is obtained from the girlfriend as patient is currently on BiPAP. Danika states that in the middle the night he was in a lot of pain so he took a couple tablets of his pain medication and went back to bed. In the morning his girlfriend noted he slept little bit longer than usual and when she finally woke him up he was confused disoriented. He had no other comp laints other than the pain after surgery. His girlfriend also noted that he appeared to have difficulty breathing. One point stated that he was short of breath. In the ED he did receive Narcan and had showed improvement with his confusion. He was alert and oriented per staff notes. Did have some increased pain after the Narcan given. Work-up included CTA chest which showed no pulmonary embolism, did show some streaky alveolar opacities in the posterior lungs extending into the lateral ba emory segment of left side infiltrate worse on the left side. Initially patient was hypoxic at 86% but did resolve on nonrebreather and the patient placed back on 3 L nasal cannula. However patient continued to have pain which appeared to concern the family quite a bit. Patient was subsequently placed on BiPAP given concern for respiratory depression while pain medications provided. In the ED patient was febrile and tachycardic blood pressure was elevated initially, no episodes of hypotension. ABG with CO2 retention and mild acidosis. Lactic acid was okay. Dr. Jenkins was contacted initially and will take the patient back today to correct the malposition stent. I discussed case with Dr. Jenkins. Also discussed case with anesthesia given his current respiratory status the plan is for ET tube placement intraoperatively and to leave him on the mechanical ventilator overnight. 10/13 Did well overnight. Good weaning parameters this morning and awake on the vent. Has sore throat and pain at surgical site otherwise unremarkable review of systems. Review of Systems: denies headache/fever/chills/nausea/vomiting/chest or abdominal pain/cough/dyspnea/diarrhea. Otherwise see above. - Constitutional Vitals: Vital Signs Temp Pulse Resp BP Pulse Ox 100.0 F H 83 20 119/71 93 10/13/18 04:01 10/13/18 07:37 10/13/18 07:42 10/13/18 06:31 10/13/18 07:42 Period Temp Pulse Resp BP Sys/Murcia Pulse Ox Last 24 Hr 98.4 F-103.5 F 36-142 9-37 88-211/55-141 68-100 Intake and Output 10/12/18 10/13/18 10/13/18 21:59 05:59 13:59 Intake Total 124 137 60 Output Total 500 575 100 Balance -376 -438 -40 Weight 80.785 kg Intake & Output: Intake & Output 10/12/18 10/13/18 10/13/18 21:59 05:59 13:59 Intake Total 124 137 60 Output Total 500 575 100 Balance -376 -438 -40 Weight 80.785 kg Intake: IV 124 137 60 Zosyn 3.375 gm In Dextrose 5% 50 50 50 in Water 50 ml @ 100 mls/hr IV Q6H SHIRIN Rx#:[id number] Diprivan 1,000 mg In Premix 1 9 22 10 Bag @ 5 MCG/KG/MIN 2.25 mls/hr IV .Q24H SHIRIN Rx#:[id number] Output: Gastric Drainage 20 Left Nare 20 Urine Catheter Amount 500 555 100 Other: Urine Appearance Cloudy Uretheral (Hernandez) Clear Hematuria Urine Color Straw Light Tamie Uretheral (Hernandez) Blood Tinged Blood Tinged Exam: General: alert and awake on vent Eyes/N/T: EOMI, PEERL, Head/Neck: neck supple, CV: RRR, No murmurs, Pulm: Clear bilaterally laterally, no wheezing Abd: soft, nontender, +BS x4 Ext: no clubbing/cyanosis/edema Neuro: awake on vent, follows commands, no focal deficits Skin: warm/dry Medical - PN: Obj Da - Labs CBC & Chem 7: 10/12/18 17:25 10/13/18 04:05 Labs: Abnormal Lab Results 10/12/18 10/12/18 10/12/18 17:25 10:55 08:50 RBC 3.39 L 3.76 L Hgb 10.4 L 11.7 L Hct 31.9 L 35.3 L Gran % 82.2 H Lymph % (Auto) 7.3 L 14.3 L Lymph # (Auto) 0.7 L 1.3 L [place] # (Auto) 1.1 H Anion Gap Glucose Urine Protein 100 A Urine Occult Blood >=1.0 A Ur Leukocyte Esterase 250 A Urine RBC > 182 H Urine WBC 96 H 10/12/18 08:49 RBC Hgb Hct Gran % Lymph % (Auto) Lymph # (Auto) [place] # (Auto) Anion Gap 7.0 L Glucose 128 H Urine Protein Urine Occult Blood Ur Leukocyte Esterase Urine RBC Urine WBC Meds: Medications Acetaminophen (Tylenol) 650 mg TN Q4-6HP PRN PRN Reason: PAIN/FEVER > 101 Albuterol/Ipratropium (Duoneb) 3 ml NEB Q6HRT [facility] Last Admin: 10/13/18 07:28 Dose: 3 ml Documented by: Budesonide (Pulmicort) 0.5 mg NEB Q12 [facility] Last Admin: 10/13/18 07:28 Dose: 0.5 mg Documented by: Chlorhexidine Gluconate (Peridex) 15 ml SWABMOUTH BID [facility] Last Admin: 10/12/18 22:32 Dose: Not Given Documented by: Docusate Sodium (Colace) 100 mg PO BID [facility] Last Admin: 10/12/18 22:10 Dose: Not Given Documented by: Famotidine (Pepcid) 20 mg IV Q12 [facility] Last Admin: 10/12/18 22:31 Dose: 20 mg Documented by: Fentanyl (Sublimaze) 25 mcg IV Q1HP PRN PRN Reason: PAIN LEVEL > 6 Heparin Sodium (Porcine) (Heparin) 5,000 unit SQ Q12 [facility] Hydralazine HCl (Apresoline) 0 mg IV Q2HP PRN PRN Reason: Hypertension Sodium Chloride (Sodium Chloride 0.9%) 1,000 mls @ 20 mls/hr IV .Q24H [facility] Last Admin: 10/12/18 16:35 Dose: 20 mls/hr Documented by: Sodium Chloride (Sodium Chloride 0.9%) 1,000 mls @ 84 mls/hr IV .[id number] [facility] Stop: 10/13/18 18:18 Last Admin: 10/12/18 19:30 Dose: 84 mls/hr Documented by: Piperacillin Sod/Tazobactam (Sod 3.375 gm/ Dextrose) 50 mls @ 100 mls/hr IV Q6H [facility]; Protocol Last Infusion: 10/13/18 06:10 Dose: Infused Documented by: Acetaminophen (Ofirmev) 650 mg in 65 mls @ 130 mls/hr IV Q6HP PRN PRN Reason: PAIN/FEVER > 101 Last Infusion: 10/13/18 03:45 Dose: Infused Documented by: Propofol 1,000 mg/ Premix 100 mls @ 2.25 mls/hr IV .Q24H [facility]; Protocol Last Titration: 10/13/18 06:00 Dose: 13 mcg/kg/min, 5.84 mls/hr Documented by: Sodium Chloride (Sodium Chloride 0.9%) 250 mls @ 20 mls/hr IV .[id number] [facility] Last Admin: 10/12/18 23:10 Dose: 20 mls/hr Documented by: Labetalol HCl (Trandate) 0 mg IV Q2HP PRN PRN Reason: Hypertension Lorazepam (Ativan) 0.5 mg IV Q2HP PRN PRN Reason: ANXIETY/SEDATION Last Admin: 10/12/18 20:15 Dose: 0.5 mg Documented by: Magnesium Hydroxide (Milk Of Magnesia) 30 ml PO DAILYP PRN PRN Reason: Constipation Naloxone HCl (Narcan) 0.1 mg IV Q2MIN PRN PRN Reason: Opiate Reversal Nicotine (Nicoderm) 21 mg TOPICAL DAILY@1000 SHIRIN Nitroglycerin (Nitrostat) 0.4 mg SL Q5M PRN PRN Reason: Chest Pain Ondansetron HCl (Zofran) 4 mg IV Q4-6HP PRN PRN Reason: Nausea And Vomiting Senna (Senokot) 1 tab PO HSP PRN PRN Reason: Constipation Sodium Chloride (Saline Flush) 10 ml IV Q8 [facility] Last Admin: 10/13/18 05:18 Dose: Not Given Documented by: Medical - PN: A/P - Time Spent With Patient Total time spent is greater than 50% in coordination of care (as documented) at patient's floor/unit and/or counseling patient: - Narrative A/P Narrative: A: *Sepsis 2/2 source: - *Malpositioned left ureteral stent w/small urinoma: s/p repositioning of stent (10/12) *Acute hypoxic/hypercapnic respiratory failure: multifactorial possible aspiration o/n given CPAP/Narcotics + underlying AMY/COPD -will be left on and later overnight *?Aspiration: *Encephalopathy, 2/2 above: -CT brain w/mild generalized atrophy *COPD (2L during day and 3L@night): [place] *AMY on CPAP: *h/o diastolic grade I cardiac dysfunction, EF good *HTN/HLD: *GERD: *Memory issues: *Tobacco abuse: *Anxiety: P: -Dr. Jenkins for -Weaning trial in the morning with sedation vacation, parameters will extubate -f/u ABG good -lizzette -Cristina -BC/UC pending -f/u AM CXR - -Smoking cessation counseling -ppx: Heparin Medical - PN: Qual - VTE Deep Vein Thrombosis/Pulmonary Embolism Present on Admission: No
[2018-10-13] MEDS: 0.9 % SODIUM CHLORIDE 1,000 ML IV SCH (08:09)
[2018-10-13 08:13] LABS: ALT/SGPT 8 U/l (0-40); AST/SGOT 18 U/l (0-37); Albumin 2.9 gm/dL (3.2-5.2); Albumin/Globulin Ratio 1.2 (1.0-2.3); Alkaline Phosphatase 62 U/L (39-117); Bilirubin,Direct 0.2 mg/dL (0.0-0.3); Bilirubin,Total 0.9 mg/dL (0.0-1.0); Blood Urea Nitrogen 14 mg/dl (8-23); Calcium 8.7 mg/dl (8.6-10.4); Carbon Dioxide 25 mmol/L (22-30); Chloride 105 mmol/L (96-108); Globulin 2.5 gm/dL (2.2-3.7); Glomerular Filtration Rate 96; Glucose 144 mg/dL (70-105); Lactate Dehydrogenase 175 U/L (94-250); Phosphorous 3.1 mg/dL (2.7-4.5); Triglycerides 85 mg/dl (<150); Uric Acid 4.8 mg/dL (2.5-8.0)
--- NOTE | 2018-10-13 08:20 | XRay Report ---
HISTORY: Respiratory distress and intubated FINDINGS: Endotracheal tube has been inserted. The tip is located 5 cm above the heidi. There is no pneumothorax or widening in the mediastinum. Prominent increased interstitial lung markings are present throughout both lung rodriguez. There is a small consolidating infiltrate located medially behind the left heart border and above the left diaphragm. The heart is normal in size. Comparison with the chest CT done on 10/12/18 shows the interstitial lung disease has become worse. IMPRESSION: No complication following intubation New onset prominence of the interstitial lung markings. This could be due to pulmonary vascular congestion or an interstitial inflammatory process Persistent atelectasis or pneumonia in the left lung base with minor involvement medially in the right lung base Interpreted and Authenticated by: Karan Miller 10/13/18
--- NOTE | 2018-10-13 08:29 | XRay Report ---
HISTORY: Nasogastric tube insertion FINDINGS: A nasogastric tube has been inserted. The tip is in the body the stomach with the tip curled and pointing towards the gastroesophageal junction. The stomach is decompressed. Patient has a pigtail stent in the left kidney and ureter. The upper portion of the stent appears to be in the region of an upper pole infundibulum and there is a loop the catheter in the region of the pelvis. There are small stones in the lower portion left kidney. There is moderate amount of gas in small bowel. The bowel is not abnormally distended.. There are small bibasilar infiltrates IMPRESSION: Well-positioned nasogastric tube in the stomach Stent in the left kidney with stones in the lower portion of the left kidney. Nonspecific small bowel pattern Interpreted and Authenticated by: Karan Miller 10/13/18
--- NOTE | 2018-10-13 08:31 | XRay Report ---
HISTORY: Left ureteral stent revision FINDINGS: Initial film shows a pigtail left-sided ureteral stent with the tip located lateral to the left side transverse process of L3. A guidewire was inserted through the ureter. The stent was removed and replaced with a small catheter. Contrast was injected filling the left renal pelvis and infundibula. There is extravasation of contrast through the upper pole collecting system. There is a urinoma located medial to the kidney. A pigtail stent was then inserted. The tip is looped in the renal pelvis. IMPRESSION: Perforation of the collecting system in the upper portion of the left kidney with formation of a small urinoma Replacement of the indwelling ureteral stent with a new stent located centrally in the renal pelvis Interpreted and Authenticated by: Karan Miller 10/13/18
--- NOTE | 2018-10-13 08:52 | XRay Report ---
HISTORY: Intubated and shortness of breath FINDINGS: Endotracheal tube and nasogastric tube remain well-positioned. There are persistent bibasilar infiltrates, left worse than right. Heart size is normal. The pulmonary vascular markings are still prominent. There is no evidence of pulmonary edema. Tiny left-sided pleural effusion is present which is stable since chest CT done on 10/12/18. There is no pneumothorax or widening of the mediastinum. Overall there has been little change from prior chest x-ray done on 10/12/18. IMPRESSION: Stable mild bibasilar pulmonary infiltrates Stable mild generalized interstitial lung disease which could be due to inflammation or pulmonary vascular congestion Interpreted and Authenticated by: Karan Miller 10/13/18
[2018-10-13] MEDS: DOCUSATE SODIUM 50 MG/5 ML ORAL.SOL PO SCH (08:55)
[2018-10-13] MEDS: CHLORHEXIDINE GLUCONATE 1 ML ORAL.SOL SWABMOUTH SCH ×2 (08:58→20:34)
[2018-10-13] MEDS: FAMOTIDINE/PF 20 MG/2 ML VIAL IV SCH ×2 (08:59→20:33)
[2018-10-13] MEDS: NICOTINE 21 MG PATCH TOPICAL SCH (08:59)
[2018-10-13] MEDS: HEPARIN 5,000 UNIT/ML VIAL SQ SCH ×2 (09:00→20:34)
--- NOTE | 2018-10-13 09:17 | General Surgery Progress Note ---
Subjective Patient reports: feels better Narrative: Note initiated : 10/13/18 at 9:15 am Service Date, if different from initiated Date: [] Patient: Chadd Gayle 68 y/o M admitted on 10/12/18 for Confusion. Chief Complaint: malposition of stent patient doing better. extubate today. discussed with family and they understand. continue lomax for the time being. Objective Temp Pulse Resp BP Pulse Ox 99.3 F H 84 20 129/70 95 10/13/18 08:59 10/13/18 08:01 10/13/18 09:10 10/13/18 08:01 10/13/18 09:10 - Additional Data Intake & Output - Last 24 hours: Intake & Output 10/11/18 10/12/18 10/13/18 10/14/18 05:59 05:59 05:59 05:59 Intake Total 1561 60 Output Total 1075 170 Balance 486 -110 Weight 178 lb 1.6 oz - Labs 10/12/18 17:25 10/13/18 04:05 Diabetes panel 10/12/18 10/12/18 10/13/18 Range/Units 08:49 16:43 04:05 Sodium 139 140 144 (133-145) mmol/L Potassium 3.8 3.7 4.0 (3.3-5.1) mmol/L Chloride 102 101 105 (96-108) mmol/L Carbon Dioxide 30 29 25 (22-30) mmol/L BUN 16 12 14 (8-23) mg/dl Creatinine 0.9 0.8 0.7 (0.7-1.2) mg/dl Glucose 128 H 96 144 H (70-105) mg/dL Calcium 8.8 8.8 8.7 (8.6-10.4) mg/dl AST 22 25 18 (0-37) U/l ALT 8 7 8 (0-40) U/l Alkaline Phosphatase 73 73 62 (39-117) U/L Total Protein 6.2 5.9 5.4 L (5.9-8.4) gm/dL Albumin 3.5 3.3 2.9 L (3.2-5.2) gm/dL Triglycerides 85 (<150) mg/dl Calcium panel 10/12/18 10/12/18 10/13/18 Range/Units 08:49 16:43 04:05 Calcium 8.8 8.8 8.7 (8.6-10.4) mg/dl Phosphorus 3.1 (2.7-4.5) mg/dL Albumin 3.5 3.3 2.9 L (3.2-5.2) gm/dL Pituitary panel 10/12/18 10/12/18 10/13/18 Range/Units 08:49 16:43 04:05 Sodium 139 140 144 (133-145) mmol/L Potassium 3.8 3.7 4.0 (3.3-5.1) mmol/L Chloride 102 101 105 (96-108) mmol/L Carbon Dioxide 30 29 25 (22-30) mmol/L BUN 16 12 14 (8-23) mg/dl Creatinine 0.9 0.8 0.7 (0.7-1.2) mg/dl Glucose 128 H 96 144 H (70-105) mg/dL Calcium 8.8 8.8 8.7 (8.6-10.4) mg/dl Adrenal panel 10/12/18 10/12/18 10/13/18 Range/Units 08:49 16:43 04:05 Sodium 139 140 144 (133-145) mmol/L Potassium 3.8 3.7 4.0 (3.3-5.1) mmol/L Chloride 102 101 105 (96-108) mmol/L Carbon Dioxide 30 29 25 (22-30) mmol/L BUN 16 12 14 (8-23) mg/dl Creatinine 0.9 0.8 0.7 (0.7-1.2) mg/dl Glucose 128 H 96 144 H (70-105) mg/dL Calcium 8.8 8.8 8.7 (8.6-10.4) mg/dl Total Bilirubin 0.6 1.0 0.9 (0.0-1.0) mg/dL AST 22 25 18 (0-37) U/l ALT 8 7 8 (0-40) U/l Alkaline Phosphatase 73 73 62 (39-117) U/L Total Protein 6.2 5.9 5.4 L (5.9-8.4) gm/dL Albumin 3.5 3.3 2.9 L (3.2-5.2) gm/dL Assessment and Plan - Time Spent With Patient Total time spent is greater than 50% in coordination of care (as documented) at patient's floor/unit and/or counseling patient:
[2018-10-13] MEDS ORDERED: MAGNESIUM SULFATE 8.12 MEQ in DEXTROSE 5% IN WATER 50 ML IV ONE (09:40)
[2018-10-13] MEDS ORDERED: MAGNESIUM SULFATE 2 GM/50 ML BAG IV ONE (09:42)
[2018-10-13 09:47] LABS: Hematocrit 30.4 % (41.0-55.0); Hemoglobin 10.2 g/dL (13.5-16.5); Mean Corpuscular HGB Conc 33.5 g/dL (31.0-36.0); Mean Platelet Volume 8.1 fL (7.4-10.4); Platelet Count 191 K/mcL (140-440); RBC 3.23 M/mcL (4.50-5.90); Red Cell Distribution Width 13.1 % (11.5-14.5); WBC 9.8 K/mcL (4.5-11.0)
[2018-10-13 10:16] LABS: Acanthocytes OCC (NONE SEEN); Band Neutrophils % 15 % (0-10); Dohle Bodies 1+ (NONE SEEN); Lymphocytes % 6 % (15-49); Monocytes % (Manual) 2 % (1-12); Ovalocytes FEW (NONE SEEN); Platelet Estimate NORMAL (NORMAL); Poikilocytosis 1+ (NONE SEEN); RBC Fragments RARE (NONE SEEN); RBC Morphology ABNORM (NORMAL); Reactive Lymphocytes 1 % (0-2); Segmented Neutrophils % 76 % (38-78)
[2018-10-13] MEDS: oxyCODONE/APAP 5/325MG TABLET PO PRN ×2 (15:05→18:22)
[2018-10-13] MEDS ORDERED: oxyCODONE/APAP 5/325MG TABLET PO PRN (18:21)
[2018-10-13] MEDS: PROPRANOLOL 40 MG TABLET PO SCH (20:34)
[2018-10-13] MEDS: DOCUSATE SODIUM 100 MG CAPSULE PO SCH (20:36)
[2018-10-13] MEDS ORDERED: LORazepam 1 MG TABLET PO PRN (21:00)
[2018-10-13] MEDS ORDERED: ZOLPIDEM 5 MG TABLET PO PRN (21:00)
[2018-10-14] MEDS: IPRATROPIUM/ALBUTEROL 3 ML AMPUL.NEB NEB SCH ×4 (00:14→19:05)
[2018-10-14] MEDS: 0.9 % SODIUM CHLORIDE 10 ML SYRINGE IV SCH ×3 (05:32→21:11)
[2018-10-14] MEDS: PIPERACILLIN SODIUM/TAZOBACTAM 3.375 GM in DEXTROSE 5% IN WATER 50 ML IV SCH ×4 (05:32→23:11)
[2018-10-14 05:54] LABS: Hematocrit 29.3 % (41.0-55.0); Hemoglobin 9.9 g/dL (13.5-16.5); Mean Cell Volume 93.3 fL (80.0-100.0); Mean Corpuscular HGB Conc 33.8 g/dL (31.0-36.0); Mean Platelet Volume 8.4 fL (7.4-10.4); Platelet Count 207 K/mcL (140-440); RBC 3.14 M/mcL (4.50-5.90); Red Cell Distribution Width 12.8 % (11.5-14.5); WBC 10.6 K/mcL (4.5-11.0)
[2018-10-14 06:07] LABS: ALT/SGPT 9 U/l (0-40); AST/SGOT 18 U/l (0-37); Albumin 2.7 gm/dL (3.2-5.2); Albumin/Globulin Ratio 1.1 (1.0-2.3); Alkaline Phosphatase 60 U/L (39-117); Bilirubin,Direct < 0.2 mg/dL (0.0-0.3); Bilirubin,Total 0.5 mg/dL (0.0-1.0); Blood Urea Nitrogen 18 mg/dl (8-23); Calcium 8.7 mg/dl (8.6-10.4); Carbon Dioxide 28 mmol/L (22-30); Chloride 108 mmol/L (96-108); Globulin 2.5 gm/dL (2.2-3.7); Glomerular Filtration Rate 96; Glucose 164 mg/dL (70-105); Lactate Dehydrogenase 177 U/L (94-250); Triglycerides 83 mg/dl (<150); Uric Acid 3.5 mg/dL (2.5-8.0)
--- NOTE | 2018-10-14 07:08 | Operative Note ---
DATE OF OPERATION: 10/12/2018 PREOPERATIVE DIAGNOSIS: Migration of left ureteral stent. POSTOPERATIVE DIAGNOSIS: Migration of left ureteral stent PROCEDURE: Repositioned stent. SURGEON: Robert Jenkins MD INDICATION: The patient is a 68-year-old gentleman who underwent a ureteroureterostomy 2 days ago. This morning he was having pain, nausea and vomiting and was seen in the emergency room. It appears that the stent had migrated and he presents now for revision. PROCEDURE IN DETAIL: The patient was identified and consent was signed. He was given general anesthesia, placed in lithotomy position, prepped and draped in a standard fashion. The stent had a good curl and was at the level of the anastomosis. We were able to pass a wire up alongside the stent and this entered into the renal pelvis. I was then able to shoot a retrograde pyelogram which demonstrated that we were in the renal pelvis. We were then able to remove the old stent, place a new stent over the wire and this showed both a good curl in the kidney and the bladder. His bladder was drained. A Hernandez catheter was placed. He was awoken and taken to the recovery room in stable condition. He tolerated the procedure well. MarielaZ:valentina Job ID: [id number] Doc ID: [id number] Robert Jenkins MD
[2018-10-14] MEDS: BUDESONIDE 0.5 MG/2 ML AMPUL.NEB NEB SCH ×2 (07:11→19:05)
--- NOTE | 2018-10-14 07:11 | Operative Note ---
DATE OF OPERATION: 10/12/2018 PREOPERATIVE DIAGNOSIS: Malposition of ureteral stent. POSTOPERATIVE DIAGNOSIS: Malposition of ureteral stent. PROCEDURE: Stent change and replacement of left ureteral stent. SURGEON: Robert Jenkins MD INDICATION: The patient is a 68-year-old gentleman who 2 days ago was undergoing ureteroscopy where there was a perforation. We had to openly repair him and he did well and went home. This morning he was having confusion, nausea, and vomiting and was seen in the emergency room. By CT scans, it appears that the stent has migrated and he presents now for reposition. PROCEDURE IN DETAIL: The patient was identified and consent was signed. He was given general anesthesia, placed in lithotomy position, prepped and draped in a standard fashion. The stent was seen exiting the left orifice while in the bladder. We were able to place a wire up alongside the stent and this showed a good curl in the renal pelvis. We then placed an open ended catheter and did a retrograde which confirmed that this was indeed in the renal pelvis. The wire was then placed up through the open ended catheter. A 6 x 26 stent was then placed which showed a good curl in the kidney and the bladder. His old stent had been removed. The Hernandez catheter was placed. The patient was awoken and taken to the ICU in a stable condition. RZ:valentina Job ID: [id number] Doc ID: [id number] Robert Jenkins MD
[2018-10-14] MEDS ORDERED: HYDROCHLOROTHIAZIDE 25 MG TABLET PO ONE (07:34)
--- NOTE | 2018-10-14 07:35 | Internal Med Progress Note ---
Medical - PN: Subj Patient information: Note initiated : 10/14/18 at 7:29 am Service Date, if different from initiated Date: [] Patient: Chadd Gayle a 68 y/o M admitted on 10/12/18 for Confusion. Chief Complaint: [] Interval history: Mr. Gayle is a 68 year old M Who recently underwent left ureteroscopy with laser lithotripsy left stent placement on . He was feeling fine on Sunday went to bed feeling okay per his girlfriend. History is obtained from the girlfriend as patient is currently on BiPAP. Danika states that in the middle the night he was in a lot of pain so he took a couple tablets of his pain medication and went back to bed. In the morning his girlfriend noted he slept little bit longer than usual and when she finally woke him up he was confused disoriented. He had no other comp laints other than the pain after surgery. His girlfriend also noted that he appeared to have difficulty breathing. One point stated that he was short of breath. In the ED he did receive Narcan and had showed improvement with his confusion. He was alert and oriented per staff notes. Did have some increased pain after the Narcan given. Work-up included CTA chest which showed no pulmonary embolism, did show some streaky alveolar opacities in the posterior lungs extending into the lateral ba emory segment of left side infiltrate worse on the left side. Initially patient was hypoxic at 86% but did resolve on nonrebreather and the patient placed back on 3 L nasal cannula. However patient continued to have pain which appeared to concern the family quite a bit. Patient was subsequently placed on BiPAP given concern for respiratory depression while pain medications provided. In the ED patient was febrile and tachycardic blood pressure was elevated initially, no episodes of hypotension. ABG with CO2 retention and mild acidosis. Lactic acid was okay. Dr. Jenkins was contacted initially and will take the patient back today to correct the malposition stent. I discussed case with Dr. Jenkins. Also discussed case with anesthesia given his current respiratory status the plan is for ET tube placement intraoperatively and to leave him on the mechanical ventilator overnight. 10/13 Did well overnight. Good weaning parameters this morning and awake on the vent. Has sore throat and pain at surgical site otherwise unremarkable review of systems. 10/14 Did not sleep well last night. Became confused after the oxycodone last night. Doing better this morning. Accompanied by family. Has occasional cough nonproductive. No shortness of breath. Surgical site discomfort Review of Systems: denies headache/fever/chills/nausea/vomiting/chest or abdominal pain/dyspnea/diarrhea. Otherwise see above. - Constitutional Vitals: Vital Signs Temp Pulse Resp BP Pulse Ox 99.0 F 81 20 164/104 97 10/14/18 07:01 10/14/18 07:21 10/14/18 07:21 10/14/18 07:01 10/14/18 07:13 Period Temp Pulse Resp BP Sys/Murcia Pulse Ox Last 24 Hr 98.3 F-99.4 F 66-111 12-28 118-175/54-104 91-100 Intake and Output 10/13/18 10/14/18 10/14/18 21:59 05:59 13:59 Intake Total 815 1070 50 Output Total 810 515 Balance 5 555 50 Weight 78.517 kg Intake & Output: Intake & Output 10/13/18 10/14/18 10/14/18 21:59 05:59 13:59 Intake Total 815 1070 50 Output Total 810 515 Balance 5 555 50 Weight 78.517 kg Intake: IV 215 50 50 Zosyn 3.375 gm In Dextrose 5% 100 50 50 in Water 50 ml @ 100 mls/hr IV Q6H [facility] Rx#:[id number] Oral 600 1020 Output: Urine Catheter Amount 760 515 Void Amount 50 Other: Meal Dinner snack Percent of Meal Consumed 75% 100% Feeding Ability Independent Urine Appearance Clear Clear Small Blood Clots Small Blood Clots Uretheral (Hernandez) Clear Small Blood Clots Urine Color Blood Tinged Light Tamie Blood Tinged Uretheral (Hernandez) Straw Blood Tinged Stool Size Large Stool Color Brown Stool Consistency Formed Exam: General: alert and awake, no acute distress Eyes/N/T: EOMI, Head/Neck: neck supple, CV: RRR, No murmurs, Pulm: Occasional wheeze on the right, no rales Abd: soft, nontender, +BS x4 Ext: no clubbing/cyanosis/edema Neuro: awake and alert, no focal deficits moves all extremities skin: warm/dry Medical - PN: Obj Da - Labs CBC & Chem 7: 07/29/19 03:40 10/14/18 03:40 Labs: Abnormal Lab Results 10/14/18 10/14/18 10/13/18 03:40 03:40 10:01 RBC 3.14 L Hgb 9.9 L Hct 29.3 L Gran % Lymph % (Auto) Lymph # (Auto) [place] # (Auto) Band Neutrophils % Lymphocytes % WBC Morphology Dohle Bodies RBC Morphology Poikilocytosis Ovalocytes Acanthocytes (Spur) RBC Fragments Sodium 146 H Anion Gap Glucose 164 H Phosphorus 2.0 L Magnesium NT-Pro-B Natriuret Pep 715.1 H Total Protein 5.2 L Albumin 2.7 L Urine Protein Urine Occult Blood Ur Leukocyte Esterase Urine RBC Urine WBC 10/13/18 10/13/18 10/12/18 09:14 04:05 17:25 RBC 3.23 L 3.39 L Hgb 10.2 L 10.4 L Hct 30.4 L 31.9 L Gran % 82.2 H Lymph % (Auto) 7.3 L Lymph # (Auto) 0.7 L [place] # (Auto) Band Neutrophils % 15 H Lymphocytes % 6 L WBC Morphology Abnorm A Dohle Bodies 1+ A RBC Morphology Abnorm A Poikilocytosis 1+ A Ovalocytes Few A Acanthocytes (Spur) Occ A RBC Fragments Rare A Sodium Anion Gap Glucose 144 H Phosphorus Magnesium 1.4 L NT-Pro-B Natriuret Pep Total Protein 5.4 L Albumin 2.9 L Urine Protein Urine Occult Blood Ur Leukocyte Esterase Urine RBC Urine WBC 10/12/18 10/12/18 10/12/18 10:55 08:50 08:49 RBC 3.76 L Hgb 11.7 L Hct 35.3 L Gran % Lymph % (Auto) 14.3 L Lymph # (Auto) 1.3 L [place] # (Auto) 1.1 H Band Neutrophils % Lymphocytes % WBC Morphology Dohle Bodies RBC Morphology Poikilocytosis Ovalocytes Acanthocytes (Spur) RBC Fragments Sodium Anion Gap 7.0 L Glucose 128 H Phosphorus Magnesium NT-Pro-B Natriuret Pep Total Protein Albumin Urine Protein 100 A Urine Occult Blood >=1.0 A Ur Leukocyte Esterase 250 A Urine RBC > 182 H Urine WBC 96 H Meds: Medications Acetaminophen (Tylenol) 650 mg IN Q4-6HP PRN PRN Reason: PAIN/FEVER > 101 Albuterol/Ipratropium (Duoneb) 3 ml NEB Q6HRT [facility] Last Admin: 10/14/18 07:11 Dose: 3 ml Documented by: Atorvastatin Calcium (Lipitor) 40 mg PO DAILY [facility] Budesonide (Pulmicort) 0.5 mg NEB Q12 [facility] Last Admin: 10/14/18 07:11 Dose: 0.5 mg Documented by: Chlorhexidine Gluconate (Peridex) 15 ml SWABMOUTH BID [facility] Last Admin: 10/13/18 20:34 Dose: 15 ml Documented by: Docusate Sodium (Colace) 100 mg PO BID [facility] Last Admin: 10/13/18 20:36 Dose: 100 mg Documented by: Famotidine (Pepcid) 20 mg IV Q12 [facility] Last Admin: 10/13/18 20:33 Dose: 20 mg Documented by: Heparin Sodium (Porcine) (Heparin) 5,000 unit SQ Q12 [facility] Last Admin: 10/13/18 20:34 Dose: Not Given Documented by: Hydralazine HCl (Apresoline) 0 mg IV Q2HP PRN PRN Reason: Hypertension Piperacillin Sod/Tazobactam (Sod 3.375 gm/ Dextrose) 50 mls @ 100 mls/hr IV Q6H [facility]; Protocol Last Infusion: 10/14/18 06:47 Dose: Infused Documented by: Acetaminophen (Ofirmev) 650 mg in 65 mls @ 130 mls/hr IV Q6HP PRN PRN Reason: PAIN/FEVER > 101 Last Infusion: 10/13/18 15:06 Dose: Infused Documented by: Labetalol HCl (Trandate) 0 mg IV Q2HP PRN PRN Reason: Hypertension Lorazepam (Ativan) 0.5 mg IV Q2HP PRN PRN Reason: ANXIETY/SEDATION Last Admin: 10/12/18 20:15 Dose: 0.5 mg Documented by: Lorazepam (Ativan) 2 mg PO HSP PRN PRN Reason: ANXIETY/SEDATION Last Admin: 10/13/18 20:34 Dose: 2 mg Documented by: Magnesium Hydroxide (Milk Of Magnesia) 30 ml PO DAILYP PRN PRN Reason: Constipation Meloxicam (Mobic) 15 mg PO DAILYP PRN PRN Reason: Pain Level < 6 Morphine Sulfate (Morphine) 1 - 4 mg IV Q3HP PRN PRN Reason: PAIN LEVEL > 6 Last Admin: 10/13/18 18:23 Dose: 4 mg Documented by: Naloxone HCl (Narcan) 0.1 mg IV Q2MIN PRN PRN Reason: Opiate Reversal Nicotine (Nicoderm) 21 mg TOPICAL DAILY@1000 [facility] Last Admin: 10/13/18 08:59 Dose: 21 mg Documented by: Nitroglycerin (Nitrostat) 0.4 mg SL Q5M PRN PRN Reason: Chest Pain Ondansetron HCl (Zofran) 4 mg IV Q4-6HP PRN PRN Reason: Nausea And Vomiting Oxycodone/Acetaminophen (Percocet 5-325 Mg) 1 - 2 tab PO Q4HP PRN PRN Reason: Pain Level > 6 Last Admin: 10/13/18 22:32 Dose: 2 tab Documented by: Propranolol HCl (Inderal) 40 mg PO BID [facility] Last Admin: 10/13/18 20:34 Dose: 40 mg Documented by: Senna (Senokot) 1 tab PO HSP PRN PRN Reason: Constipation Sodium Chloride (Saline Flush) 10 ml IV Q8 [facility] Last Admin: 10/14/18 05:32 Dose: 10 ml Documented by: Terazosin HCl (Hytrin) 5 mg PO DAILY [facility] Zolpidem Tartrate (Ambien) 5 mg PO HSP PRN PRN Reason: Insomnia Last Admin: 10/13/18 20:34 Dose: 5 mg Documented by: Medical - PN: A/P - Time Spent With Patient Total time spent is greater than 50% in coordination of care (as documented) at patient's floor/unit and/or counseling patient: - Narrative A/P Narrative: A: *Sepsis 2/2 source: -bandemia resolved -now afebrile *Malpositioned left ureteral stent w/small urinoma: s/p repositioning of stent (10/12) *Acute hypoxic/hypercapnic respiratory failure: multifactorial possible aspiration o/n given CPAP/Narcotics + underlying AMY/COPD -left intubated o/n after surgery, extubated morning of 10/13 -now on 1L NC w/sats 96-97, *?Aspiration: f/u cxr with improved atelectasis/infiltrate improving *Encephalopathy, 2/2 above: -CT brain w/mild generalized atrophy *COPD (2L during day and 3L@night): [place]AMY on CPAP: *h/o diastolic grade I cardiac dysfunction, good EF: *HTN/HLD: *GERD: *Encephalopathy: 2/2 critical care illness and medications *Memory issues: *Tobacco abuse: *Anxiety: P: -Dr. Jenkins for -Zosyn -BC/UC pending -attempt to reduce narcotics, oxy switched to tramadol, trial of NSAID and robaxin/lidoderm -nebs, IS - -Smoking cessation counseling -ppx: Heparin/H2 Medical - PN: Qual - VTE Deep Vein Thrombosis/Pulmonary Embolism Present on Admission: No
[2018-10-14] MEDS ORDERED: DEXTROSE 5% IN WATER 500 ML IV SCH ×2 (07:45→10:06)
--- NOTE | 2018-10-14 07:48 | General Surgery Progress Note ---
Subjective Patient reports: feels better Narrative: Note initiated : 10/14/18 at 7:46 am Service Date, if different from initiated Date: [] Patient: Chadd Gayle 68 y/o M admitted on 10/12/18 for Confusion. Chief Complaint: [] Patient extubated. feeling better. will switch to tramadol. sensitive to narcotics. agree with transfer to floor. keep lomax catheter. KUB today to make sure stent is in proper position. will follow. Objective Temp Pulse Resp BP Pulse Ox 99.0 F 81 20 164/104 97 10/14/18 07:01 10/14/18 07:21 10/14/18 07:21 10/14/18 07:01 10/14/18 07:13 - Additional Data Intake & Output - Last 24 hours: Intake & Output 10/12/18 10/13/18 10/14/18 10/15/18 05:59 05:59 05:59 05:59 Intake Total 1561 4289 50 Output Total 1075 1775 Balance 486 2514 50 Weight 178 lb 1.6 oz 173 lb 1.6 oz - Labs 10/14/18 03:40 10/14/18 03:40 Diabetes panel 10/13/18 10/14/18 Range/Units 04:05 03:40 Sodium 144 146 H (133-145) mmol/L Potassium 4.0 4.0 (3.3-5.1) mmol/L Chloride 105 108 (96-108) mmol/L Carbon Dioxide 25 28 (22-30) mmol/L BUN 14 18 (8-23) mg/dl Creatinine 0.7 0.7 (0.7-1.2) mg/dl Glucose 144 H 164 H (70-105) mg/dL Calcium 8.7 8.7 (8.6-10.4) mg/dl AST 18 18 (0-37) U/l ALT 8 9 (0-40) U/l Alkaline Phosphatase 62 60 (39-117) U/L Total Protein 5.4 L 5.2 L (5.9-8.4) gm/dL Albumin 2.9 L 2.7 L (3.2-5.2) gm/dL Triglycerides 85 83 (<150) mg/dl Calcium panel 10/13/18 10/14/18 Range/Units 04:05 03:40 Calcium 8.7 8.7 (8.6-10.4) mg/dl Phosphorus 3.1 2.0 L (2.7-4.5) mg/dL Albumin 2.9 L 2.7 L (3.2-5.2) gm/dL Pituitary panel 10/13/18 10/14/18 Range/Units 04:05 03:40 Sodium 144 146 H (133-145) mmol/L Potassium 4.0 4.0 (3.3-5.1) mmol/L Chloride 105 108 (96-108) mmol/L Carbon Dioxide 25 28 (22-30) mmol/L BUN 14 18 (8-23) mg/dl Creatinine 0.7 0.7 (0.7-1.2) mg/dl Glucose 144 H 164 H (70-105) mg/dL Calcium 8.7 8.7 (8.6-10.4) mg/dl Adrenal panel 10/13/18 10/14/18 Range/Units 04:05 03:40 Sodium 144 146 H (133-145) mmol/L Potassium 4.0 4.0 (3.3-5.1) mmol/L Chloride 105 108 (96-108) mmol/L Carbon Dioxide 25 28 (22-30) mmol/L BUN 14 18 (8-23) mg/dl Creatinine 0.7 0.7 (0.7-1.2) mg/dl Glucose 144 H 164 H (70-105) mg/dL Calcium 8.7 8.7 (8.6-10.4) mg/dl Total Bilirubin 0.9 0.5 (0.0-1.0) mg/dL AST 18 18 (0-37) U/l ALT 8 9 (0-40) U/l Alkaline Phosphatase 62 60 (39-117) U/L Total Protein 5.4 L 5.2 L (5.9-8.4) gm/dL Albumin 2.9 L 2.7 L (3.2-5.2) gm/dL Assessment and Plan - Time Spent With Patient Total time spent is greater than 50% in coordination of care (as documented) at patient's floor/unit and/or counseling patient:
[2018-10-14 07:51] LABS: Band Neutrophils % 1 % (0-10); Lymphocytes % 13 % (15-49); Monocytes % (Manual) 9 % (1-12); Platelet Estimate NORMAL (NORMAL); RBC Morphology NORMAL (NORMAL); Segmented Neutrophils % 77 % (38-78)
[2018-10-14] MEDS ORDERED: traMADol 50 MG TABLET PO PRN ×2 (07:54→10:06)
--- NOTE | 2018-10-14 07:58 | XRay Report ---
CLINICAL INFORMATION: intubation COMPARISON: 10/13/2018 FINDINGS: Endotracheal and NG tubes have been removed. The heart remains borderline enlarged. Mediastinum unremarkable. Pulmonary vessels have decreased in caliber and are only minimally distended. Small patchy bibasilar infiltrates have improved. No definite effusions IMPRESSION: Mild CHF - improving. Patient now extubated Mild bibasilar atelectasis/infiltrate also improving Interpreted and Authenticated by: Roshan Alvarado 10/14/18
[2018-10-14] MEDS ORDERED: ACETAMINOPHEN 325 MG TABLET PO ONE (08:14)
[2018-10-14] MEDS: FAMOTIDINE/PF 20 MG/2 ML VIAL IV SCH ×2 (08:17→21:10)
[2018-10-14] MEDS: DOCUSATE SODIUM 100 MG CAPSULE PO SCH ×2 (08:18→21:10)
[2018-10-14] MEDS: HEPARIN 5,000 UNIT/ML VIAL SQ SCH ×2 (08:18→21:09)
--- NOTE | 2018-10-14 08:42 | XRay Report ---
CLINICAL INFORMATION: Left Flank pain after stent placement COMPARISON: Abdomen and pelvic CT from 10/12/2018. FINDINGS: Left ureteral stent at either been replaced or repositioned since the CT two days prior. The distal pigtail overlies the expected location of the left urinary bladder. The upper pigtail is looped in the renal pelvis. There is a 6 mm calcification adjacent to the midportion of the stent, at approximately the S1 level. This could potentially represent a stone or merely a superimposed benign calcification outside the ureter. The stool gas pattern shows mild ileus pattern. No free air or soft tissue mass. IMPRESSION: Left ureteral stent has been replaced or repositioned since CT two days prior. There is a single loop in the expected location of the left renal pelvis. 6 mm calcification adjacent to the mid stent at the S1 level, was not seen on previous CT. It could represent an adjacent ureteral stone versus a superimposed benign extra ureteral calcification. Interpreted and Authenticated by: Roshan Alvarado 10/14/18
[2018-10-14] MEDS ORDERED: ACETAMINOPHEN 325 MG TABLET PO PRN (08:43)
[2018-10-14] MEDS ORDERED: TERAZOSIN 5 MG CAPSULE PO SCH (09:00)
[2018-10-14] MEDS ORDERED: ALBUTEROL SULFATE 1 PUFF INHALER INH PRN ×2 (09:00→10:06)
[2018-10-14] MEDS ORDERED: MELOXICAM 7.5 MG TABLET PO PRN (09:00)
[2018-10-14] MEDS ORDERED: ALBUTEROL SULFATE 1 PUFF INHALER INH SCH (09:00)
[2018-10-14] MEDS ORDERED: ATORVASTATIN 20 MG TABLET PO SCH (09:00)
[2018-10-14] MEDS ORDERED: IPRATROPIUM/ALBUTEROL SULFATE 1 PUFF INHALER INH SCH (09:00)
[2018-10-14] MEDS ORDERED: TRELEGY INH SCH (09:00)
[2018-10-14] MEDS: PROPRANOLOL 40 MG TABLET PO SCH ×2 (09:07→21:11)
[2018-10-14] MEDS: CHLORHEXIDINE GLUCONATE 1 ML ORAL.SOL SWABMOUTH SCH ×2 (09:07→21:20)
[2018-10-14] MEDS: NICOTINE 21 MG PATCH TOPICAL SCH (09:07)
[2018-10-14] MEDS ORDERED: KETOROLAC 15 MG/ML VIAL IV PRN (09:14)
[2018-10-14] MEDS ORDERED: NEUTRA PHOS 1 PACKET PO ONE ×2 (09:29→10:06)
[2018-10-14] MEDS ORDERED: LABETALOL 5 MG/ML ML IV PRN (10:06)
[2018-10-14] MEDS ORDERED: MAGNESIUM HYDROXIDE 30 ML ORAL.SUSP PO PRN (10:06)
[2018-10-14] MEDS ORDERED: oxyCODONE/APAP 5/325MG TABLET PO PRN (10:06)
[2018-10-14] MEDS ORDERED: NITROGLYCERIN 0.4 MG TAB.SUBL SL PRN (10:06)
[2018-10-14] MEDS ORDERED: ACETAMINOPHEN 650 MG/65 ML BOTTLE IV PRN (10:06)
[2018-10-14] MEDS ORDERED: NALOXONE HCL 0.4 MG/ML VIAL IV PRN (10:06)
[2018-10-14] MEDS ORDERED: ACETAMINOPHEN 650 MG SUPP.RECT PR PRN (10:06)
[2018-10-14] MEDS ORDERED: LORazepam 2 MG/ML VIAL IV PRN (10:06)
[2018-10-14] MEDS ORDERED: ONDANSETRON 4 MG/2 ML VIAL IV PRN (10:06)
[2018-10-14] MEDS ORDERED: hydrALAZINE 20 MG/ML VIAL IV PRN (10:06)
[2018-10-14] MEDS: ACETAMINOPHEN 325 MG TABLET PO PRN (14:42)
[2018-10-14] MEDS: KETOROLAC 15 MG/ML VIAL IV PRN (17:06)
[2018-10-14] MEDS ORDERED: LORazepam 1 MG TABLET PO PRN (21:00)
[2018-10-14] MEDS ORDERED: SENNOSIDES 1 TABLET PO PRN (21:00)
[2018-10-14] MEDS ORDERED: MELATONIN 3 MG TABLET PO PRN (21:00)
[2018-10-14] MEDS ORDERED: IPRATROPIUM/ALBUTEROL SULFATE 1 PUFF INHALER INH PRN (21:00)
[2018-10-14] MEDS ORDERED: ZOLPIDEM 5 MG TABLET PO PRN ×2 (21:00)
[2018-10-15] MEDS: KETOROLAC 15 MG/ML VIAL IV PRN ×2 (00:47→10:28)
[2018-10-15] MEDS: IPRATROPIUM/ALBUTEROL 3 ML AMPUL.NEB NEB SCH ×2 (01:10→07:01)
[2018-10-15] MEDS: 0.9 % SODIUM CHLORIDE 10 ML SYRINGE IV SCH (05:44)
[2018-10-15] MEDS: PIPERACILLIN SODIUM/TAZOBACTAM 3.375 GM in DEXTROSE 5% IN WATER 50 ML IV SCH (05:44)
[2018-10-15] MEDS: ACETAMINOPHEN 325 MG TABLET PO PRN (06:05)
--- NOTE | 2018-10-15 06:12 | XRay Report ---
CLINICAL INFORMATION: Dyspnea COMPARISON: 10/14/2018 FINDINGS: Cardiomediastinal silhouette and pulmonary vessels are normal for technique and semirecumbent positioning. Small infiltrate has developed in the left base. Minor right basilar atelectasis unchanged. Small left pleural effusion noted IMPRESSION: New small left basilar infiltrate and small left pleural effusion. Minor right basilar atelectasis Interpreted and Authenticated by: Roshan Alvarado 10/15/18
--- NOTE | 2018-10-15 06:50 | Internal Med Progress Note ---
Medical - PN: Subj Patient information: Note initiated : 10/15/18 at 6:46 am Service Date, if different from initiated Date: [] Patient: Chadd Gayle a 68 y/o M admitted on 10/12/18 for Confusion. Chief Complaint: [] Interval history: Mr. Gayle is a 68 year old M Who recently underwent left ureteroscopy with laser lithotripsy left stent placement on . He was feeling fine on Sunday went to bed feeling okay per his girlfriend. History is obtained from the girlfriend as patient is currently on BiPAP. Danika states that in the middle the night he was in a lot of pain so he took a couple tablets of his pain medication and went back to bed. In the morning his girlfriend noted he slept little bit longer than usual and when she finally woke him up he was confused disoriented. He had no other comp laints other than the pain after surgery. His girlfriend also noted that he appeared to have difficulty breathing. One point stated that he was short of breath. In the ED he did receive Narcan and had showed improvement with his confusion. He was alert and oriented per staff notes. Did have some increased pain after the Narcan given. Work-up included CTA chest which showed no pulmonary embolism, did show some streaky alveolar opacities in the posterior lungs extending into the lateral ba emory segment of left side infiltrate worse on the left side. Initially patient was hypoxic at 86% but did resolve on nonrebreather and the patient placed back on 3 L nasal cannula. However patient continued to have pain which appeared to concern the family quite a bit. Patient was subsequently placed on BiPAP given concern for respiratory depression while pain medications provided. In the ED patient was febrile and tachycardic blood pressure was elevated initially, no episodes of hypotension. ABG with CO2 retention and mild acidosis. Lactic acid was okay. Dr. Jenkins was contacted initially and will take the patient back today to correct the malposition stent. I discussed case with Dr. Jenkins. Also discussed case with anesthesia given his current respiratory status the plan is for ET tube placement intraoperatively and to leave him on the mechanical ventilator overnight. 10/13 Did well overnight. Good weaning parameters this morning and awake on the vent. Has sore throat and pain at surgical site otherwise unremarkable review of systems. 10/14 Did not sleep well last night. Became confused after the oxycodone last night. Doing better this morning. Accompanied by family. Has occasional cough nonproductive. No shortness of breath. Surgical site discomfort 10/15 confusion overnight. Better this morning. Suspect Ambien as major contributor, DC. Stable for discharge, family will be staying with him and monitoring him closely Review of Systems: denies headache/fever/chills/nausea/vomiting/chest or abdominal pain/dyspnea/diarrhea. Otherwise see above. - Constitutional Vitals: Vital Signs Temp Pulse Resp BP Pulse Ox 98.1 F 72 20 136/85 95 10/15/18 05:49 10/15/18 05:49 10/15/18 05:49 10/15/18 05:49 10/15/18 05:49 Period Temp Pulse Resp BP Sys/Murcia Pulse Ox Last 24 Hr 98.1 F-99.2 F 63-94 18-22 130-164/71-104 90-97 Intake and Output 10/14/18 10/15/18 10/15/18 21:59 05:59 13:59 Intake Total 650 50 Output Total 2500 850 Balance -1850 -800 Weight 79.832 kg Intake & Output: Intake & Output 10/14/18 10/15/18 10/15/18 21:59 05:59 13:59 Intake Total 650 50 Output Total 2500 850 Balance -1850 -800 Weight 79.832 kg Intake: IV 550 50 Zosyn 3.375 gm In Dextrose 5% 50 50 in Water 50 ml @ 100 mls/hr IV Q6H [facility] Rx#:[id number] Oral 100 Output: Urine Catheter Amount 2250 850 Void Amount 250 Other: Meal Dinner Percent of Meal Consumed 75% Feeding Ability Independent Urine Appearance Clear Clear Urine Color [place] Ure[place] (Hernandez) [place] Urine Odor Strong Exam: General: alert and awake, no acute distress Eyes/N/T: EOMI, Head/Neck: neck supple, CV: RRR, No murmurs, Pulm: Occasional wheeze on the right, no rales Abd: soft, nontender, +BS x4 Ext: no clubbing/cyanosis/edema Neuro: awake and alert, no focal deficits moves all extremities skin: warm/dry Medical - PN: Obj Da - Labs CBC & Chem 7: 10/14/18 03:40 07/30/19 05:49 Labs: Abnormal Lab Results 10/14/18 10/14/18 10/13/18 03:40 03:40 10:01 RBC 3.14 L Hgb 9.9 L Hct 29.3 L Gran % Lymph % (Auto) Lymph # (Auto) Winn # (Auto) Band Neutrophils % Lymphocytes % 13 L WBC Morphology Dohle Bodies RBC Morphology Poikilocytosis Ovalocytes Acanthocytes (Spur) RBC Fragments Sodium 146 H Anion Gap Glucose 164 H Phosphorus 2.0 L Magnesium NT-Pro-B Natriuret Pep 715.1 H Total Protein 5.2 L Albumin 2.7 L Urine Protein Urine Occult Blood Ur Leukocyte Esterase Urine RBC Urine WBC 10/13/18 10/13/18 10/12/18 09:14 04:05 17:25 RBC 3.23 L 3.39 L Hgb 10.2 L 10.4 L Hct 30.4 L 31.9 L Gran % 82.2 H Lymph % (Auto) 7.3 L Lymph # (Auto) 0.7 L Winn # (Auto) Band Neutrophils % 15 H Lymphocytes % 6 L WBC Morphology Abnorm A Dohle Bodies 1+ A RBC Morphology Abnorm A Poikilocytosis 1+ A Ovalocytes Few A Acanthocytes (Spur) Occ A RBC Fragments Rare A Sodium Anion Gap Glucose 144 H Phosphorus Magnesium 1.4 L NT-Pro-B Natriuret Pep Total Protein 5.4 L Albumin 2.9 L Urine Protein Urine Occult Blood Ur Leukocyte Esterase Urine RBC Urine WBC 10/12/18 10/12/18 10/12/18 10:55 08:50 08:49 RBC 3.76 L Hgb 11.7 L Hct 35.3 L Gran % Lymph % (Auto) 14.3 L Lymph # (Auto) 1.3 L Winn # (Auto) 1.1 H Band Neutrophils % Lymphocytes % WBC Morphology Dohle Bodies RBC Morphology Poikilocytosis Ovalocytes Acanthocytes (Spur) RBC Fragments Sodium Anion Gap 7.0 L Glucose 128 H Phosphorus Magnesium NT-Pro-B Natriuret Pep Total Protein Albumin Urine Protein 100 A Urine Occult Blood >=1.0 A Ur Leukocyte Esterase 250 A Urine RBC > 182 H Urine WBC 96 H Meds: Medications Acetaminophen (Tylenol) 650 mg NC Q4-6HP PRN PRN Reason: PAIN/FEVER > 101 Acetaminophen (Tylenol) 650 mg PO Q4-6HP PRN PRN Reason: PAIN/FEVER > 101 Last Admin: 10/15/18 06:05 Dose: 650 mg Documented by: Albuterol Sulfate (Ventolin) 1 puff INH Q4-6HP PRN PRN Reason: Shortness Of Breath Last Admin: 10/14/18 21:12 Dose: 1 puff Documented by: Albuterol/Ipratropium (Duoneb) 3 ml NEB Q6HRT [facility] Last Admin: 10/15/18 01:10 Dose: 3 ml Documented by: Albuterol/Ipratropium (Combivent) 1 puff INH QIDP PRN PRN Reason: Shortness Of Breath Last Admin: 10/14/18 21:11 Dose: 1 puff Documented by: Atorvastatin Calcium (Lipitor) 40 mg PO DAILY [facility] Budesonide (Pulmicort) 0.5 mg NEB Q12 [facility] Last Admin: 10/14/18 19:05 Dose: 0.5 mg Documented by: Chlorhexidine Gluconate (Peridex) 15 ml SWABMOUTH BID [facility] Last Admin: 10/14/18 21:20 Dose: Not Given Documented by: Docusate Sodium (Colace) 100 mg PO BID [facility] Last Admin: 10/14/18 21:10 Dose: 100 mg Documented by: Famotidine (Pepcid) 20 mg IV Q12 [facility] Last Admin: 10/14/18 21:10 Dose: 20 mg Documented by: Heparin Sodium (Porcine) (Heparin) 5,000 unit SQ Q12 [facility] Last Admin: 10/14/18 21:09 Dose: 5,000 unit Documented by: Hydralazine HCl (Apresoline) 0 mg IV Q2HP PRN PRN Reason: Hypertension Acetaminophen (Ofirmev) 650 mg in 65 mls @ 130 mls/hr IV Q6HP PRN PRN Reason: PAIN/FEVER > 101 Piperacillin Sod/Tazobactam (Sod 3.375 gm/ Dextrose) 50 mls @ 100 mls/hr IV Q6H [facility]; Protocol Last Admin: 10/15/18 05:44 Dose: 100 mls/hr Documented by: Ketorolac Tromethamine (Toradol) 15 mg IV Q6HP PRN PRN Reason: Pain Stop: 10/16/18 09:14 Last Admin: 10/15/18 00:47 Dose: 15 mg Documented by: Labetalol HCl (Trandate) 0 mg IV Q2HP PRN PRN Reason: Hypertension Lorazepam (Ativan) 0.5 mg IV Q2HP PRN PRN Reason: ANXIETY/SEDATION Last Admin: 10/15/18 01:25 Dose: 0.5 mg Documented by: Lorazepam (Ativan) 2 mg PO HSP PRN PRN Reason: ANXIETY/SEDATION Last Admin: 10/14/18 21:11 Dose: 2 mg Documented by: Magnesium Hydroxide (Milk Of Magnesia) 30 ml PO DAILYP PRN PRN Reason: Constipation Melatonin (Melatonin 3mg Tablet) 3 mg PO HSP PRN PRN Reason: Sleep Morphine Sulfate (Morphine) 1 - 4 mg IV Q3HP PRN PRN Reason: PAIN LEVEL > 6 Naloxone HCl (Narcan) 0.1 mg IV Q2MIN PRN PRN Reason: Opiate Reversal Nicotine (Nicoderm) 21 mg TOPICAL DAILY@1000 SHIRIN Nitroglycerin (Nitrostat) 0.4 mg SL Q5M PRN PRN Reason: Chest Pain Ondansetron HCl (Zofran) 4 mg IV Q4-6HP PRN PRN Reason: Nausea And Vomiting Oxycodone/Acetaminophen (Percocet 5-325 Mg) 1 - 2 tab PO Q4HP PRN PRN Reason: Pain Level > 6 Trelegy (Fluticasone 100mcg/Umeclidinium 62.5 Mcg/Vilanterol 25 Mcg) Inhaler 1 dose INH DAILY [facility] Propranolol HCl (Inderal) 40 mg PO BID [facility] Last Admin: 10/14/18 21:11 Dose: 40 mg Documented by: Sensoraya (Senokot) 1 tab PO HSP PRN PRN Reason: Constipation Sodium Chloride (Saline Flush) 10 ml IV Q8 [facility] Last Admin: 10/15/18 05:44 Dose: 10 ml Documented by: Terazosin HCl (Hytrin) 5 mg PO DAILY [facility] Tramadol HCl (Ultram) 50 - 100 mg PO Q6HP PRN PRN Reason: Pain Medical - PN: A/P - Time Spent With Patient Total time spent is greater than 50% in coordination of care (as documented) at patient's floor/unit and/or counseling patient: - Narrative A/P Narrative: A: *Sepsis 2/2 source: -bandemia resolved -now afebrile *Malpositioned left ureteral stent w/small urinoma: s/p repositioning of stent (10/12) *Acute hypoxic/hypercapnic respiratory failure: multifactorial atelectasis, Narcotics + underlying AMY/COPD -left intubated o/n after surgery, extubated morning of 10/13 -now on 1L NC w/sats 94-96, *?Aspiration vs more likely atelectasis: f/u cxr with improved atelectasis/infiltrate improving *Encephalopathy, 2/2 above: Improved but then worsens overnight and clears during day -CT brain w/mild generalized atrophy -given the reported h/o "Memory issues" suspect mild Dementia compounded by recent acute illness/hospitalization + medications: *COPD (2L during day and 3L@night): [place] *AMY on CPAP: *h/o diastolic grade I cardiac dysfunction, good EF: *HTN/HLD: *GERD: *Encephalopathy: 2/2 critical care illness and medications *Memory issues: *Tobacco abuse: *Anxiety: P: -Dr. Jenkins for -Zosyn -/UC pending -attempt to reduce narcotics, oxy switched to tramadol, trial of NSAID and robaxin/lidoderm -nebs, IS -d/c sol -Smoking cessation counseling -MARA Maldonado, try to avoid Ativan. We will switch to melatonin plus or minus Benadryl for sleep at night -ppx: Heparin/H2 Medical - PN: Qual - VTE Deep Vein Thrombosis/Pulmonary Embolism Present on Admission: No
[2018-10-15] MEDS: BUDESONIDE 0.5 MG/2 ML AMPUL.NEB NEB SCH (07:01)
[2018-10-15 07:24] LABS: ALT/SGPT 11 U/l (0-40); AST/SGOT 15 U/l (0-37); Albumin 2.9 gm/dL (3.2-5.2); Albumin/Globulin Ratio 1.2 (1.0-2.3); Alkaline Phosphatase 57 U/L (39-117); Bilirubin,Direct < 0.2 mg/dL (0.0-0.3); Bilirubin,Total 0.6 mg/dL (0.0-1.0); Blood Urea Nitrogen 12 mg/dl (8-23); Calcium 8.9 mg/dl (8.6-10.4); Carbon Dioxide 30 mmol/L (22-30); Chloride 104 mmol/L (96-108); Globulin 2.5 gm/dL (2.2-3.7); Glomerular Filtration Rate 91; Glucose 101 mg/dL (70-105); Lactate Dehydrogenase 201 U/L (94-250); Phosphorous 3.5 mg/dL (2.7-4.5); Triglycerides 136 mg/dl (<150); Uric Acid 3.6 mg/dL (2.5-8.0)
--- NOTE | 2018-10-15 07:29 | General Surgery Progress Note ---
Subjective Patient reports: feels better, pain is less, tolerating a regular diet Narrative: Note initiated : 10/15/18 at 7:26 am Service Date, if different from initiated Date: [] Patient: Chadd Gayle 68 y/o M admitted on 10/12/18 for Confusion. Chief Complaint: [] patient is doing better. fever was probably secondary to atelectasis. wound is clean and dry. stent in proper location. will remove catheter today. will f/u on sunday for stable removal. Objective Temp Pulse Resp BP Pulse Ox 98.1 F 77 16 136/85 95 10/15/18 05:49 10/15/18 07:10 10/15/18 07:10 10/15/18 05:49 10/15/18 07:00 - Additional Data Intake & Output - Last 24 hours: Intake & Output 10/13/18 10/14/18 10/15/18 10/16/18 05:59 05:59 05:59 05:59 Intake Total 1561 4289 920 Output Total 1075 1775 3670 Balance 486 2514 -2750 Weight 178 lb 1.6 oz 173 lb 1.6 oz 176 lb - Labs 10/14/18 03:40 10/15/18 05:49 Diabetes panel 10/15/18 Range/Units 05:49 Sodium 144 (133-145) mmol/L Potassium 3.6 (3.3-5.1) mmol/L Chloride 104 (96-108) mmol/L Carbon Dioxide 30 (22-30) mmol/L BUN 12 (8-23) mg/dl Creatinine 0.8 (0.7-1.2) mg/dl Glucose 101 (70-105) mg/dL Calcium 8.9 (8.6-10.4) mg/dl AST 15 (0-37) U/l ALT 11 (0-40) U/l Alkaline Phosphatase 57 (39-117) U/L Total Protein 5.4 L (5.9-8.4) gm/dL Albumin 2.9 L (3.2-5.2) gm/dL Triglycerides 136 (<150) mg/dl Calcium panel 10/15/18 Range/Units 05:49 Calcium 8.9 (8.6-10.4) mg/dl Phosphorus 3.5 (2.7-4.5) mg/dL Albumin 2.9 L (3.2-5.2) gm/dL Pituitary panel 10/15/18 Range/Units 05:49 Sodium 144 (133-145) mmol/L Potassium 3.6 (3.3-5.1) mmol/L Chloride 104 (96-108) mmol/L Carbon Dioxide 30 (22-30) mmol/L BUN 12 (8-23) mg/dl Creatinine 0.8 (0.7-1.2) mg/dl Glucose 101 (70-105) mg/dL Calcium 8.9 (8.6-10.4) mg/dl Adrenal panel 10/15/18 Range/Units 05:49 Sodium 144 (133-145) mmol/L Potassium 3.6 (3.3-5.1) mmol/L Chloride 104 (96-108) mmol/L Carbon Dioxide 30 (22-30) mmol/L BUN 12 (8-23) mg/dl Creatinine 0.8 (0.7-1.2) mg/dl Glucose 101 (70-105) mg/dL Calcium 8.9 (8.6-10.4) mg/dl Total Bilirubin 0.6 (0.0-1.0) mg/dL AST 15 (0-37) U/l ALT 11 (0-40) U/l Alkaline Phosphatase 57 (39-117) U/L Total Protein 5.4 L (5.9-8.4) gm/dL Albumin 2.9 L (3.2-5.2) gm/dL Assessment and Plan - Time Spent With Patient Total time spent is greater than 50% in coordination of care (as documented) at patient's floor/unit and/or counseling patient:
[2018-10-15] MEDS: HEPARIN 5,000 UNIT/ML VIAL SQ SCH (09:00)
[2018-10-15] MEDS ORDERED: TERAZOSIN 5 MG CAPSULE PO SCH (09:00)
[2018-10-15] MEDS ORDERED: TRELEGY INH SCH (09:00)
[2018-10-15] MEDS: DOCUSATE SODIUM 100 MG CAPSULE PO SCH (09:00)
[2018-10-15] MEDS ORDERED: ATORVASTATIN 20 MG TABLET PO SCH (09:00)
[2018-10-15] MEDS: FAMOTIDINE/PF 20 MG/2 ML VIAL IV SCH (09:01)
[2018-10-15] MEDS: PROPRANOLOL 40 MG TABLET PO SCH (09:01)
[2018-10-15] MEDS: CHLORHEXIDINE GLUCONATE 1 ML ORAL.SOL SWABMOUTH SCH (09:01)
--- NOTE | 2018-10-15 09:35 | Discharge Summary ---
Medical - DS: Prov Patient information: Note initiated : 10/15/18 at 9:31 am Service Date, if different from initiated Date: [] Patient: Chadd Gayle 68 y/o M admitted on 10/12/18 for Confusion. Chief Complaint: [] Date of admission: 10/12/18 18:51 Discharge date: 10/15/18 Primary care physician: Clayton Lindsey Consults: 10/12/18 Consult to Physician [CONS] Stat Comment: Consulting Provider: Robert Jenkins Reason For Exam: Physician to Consult 10/12/18 17:58 Consult to Physician [CONS] Stat Comment: Consulting Provider: Patric Aaron Reason For Exam: Physician to Consult Medical - DS: Meds - Discharge Medications Prescriptions: Ciprofloxacin [Cipro] 500 mg PO BID #6 tab Lactobacillus [Culturelle] 1 cap PO BID #40 cap Melatonin [Melatonin 3Mg Tablet] 3 mg PO HSP PRN #30 tab PRN Reason: Sleep Active and Home Medications: Home Medications atorvastatin 40 mg tablet 40 mg PO QDAY 12/15/15 [History Confirmed 10/13/18 Last Taken 10/12/18] meloxicam 15 mg tablet 15 mg PO QDAY 12/15/15 [History Confirmed 10/13/18 Last Taken 10/11/18] pantoprazole 40 mg tablet,delayed release 40 mg PO QDAY 12/15/15 [History Conf irmed 10/13/18 Last Taken 10/11/18] lorazepam 2 mg tablet 2 mg SUBLINGUAL HS tab 03/27/18 [History Confirmed 10/13/18 Last Taken 10/11/18] propranolol 40 mg tablet 40 mg PO BID tab 03/27/18 [History Confirmed 10/13/18 Last Taken 10/11/18] terazosin 5 mg capsule 5 mg PO DAILY 03/27/18 [History Confirmed 10/13/18 Last Taken 10/11/18] zolpidem 5 mg tablet 12.5 mg PO HSP PRN tab 03/27/18 [History Confirmed 10/13/18 Last Taken 10/10/18] Combivent Respimat 20 mcg-100 mcg/actuation solution for inhalation 1 puff INHALATION QID #4 g NS 05/08/18 [Rx Confirmed 10/13/18 Last Taken 10/12/18] albuterol sulfate 90 mcg/actuation breath activated powder inhaler 1 inh INHALATION Q4H 07/31/18 [History Confirmed 10/13/18 Last Taken 10/12/18] oxyCODONE/APAP [Percocet 5-325 mg] 1 tab PO Q4H PRN 10/13/18 [History Confirmed 10/13/18 Last Taken 10/12/18] Medical - DS: Hosp Hospital course: Mr. Gayle is a 68 year old M Mr. Gayle is a 68 year old M Who recently underwent left ureteroscopy with laser lithotripsy left stent placement on . He was feeling fine on Sunday went to bed feeling okay per his girlfriend. History is obtained from the girlfriend as patient is currently on BiPAP. Danika states that in the middle the night he was in a lot of pain so he took a couple tablets of his pain medication and went back to bed. In the morning his girlfriend noted he slept little bit longer than usual and when she finally woke him up he was confused disoriented. He had no other complaints other than the pain after surgery. His girlfriend also noted that he appeared to have difficulty breathing. One point stated that he was short of breath. In the ED he did receive Narcan and had showed improvement with his confusion. He was alert and oriented per staff notes. Did have some increased pain after the Narcan given. Work-up included CTA chest which showed no pulmonary embolism, did show some streaky alveolar opacities in the posterior lungs extending into the lateral basal segment of left side infiltrate worse on the left side. Initially patient was hypoxic at 86% but did resolve on nonrebreather and the patient placed back on 3 L nasal cannula. However patient continued to have pain which appeared to concern the family quite a bit. Patient was subsequently placed on BiPAP given concern for respiratory depression while pain medications provided. In the ED patient was febrile and tachycardic blood pressure was elevated initially, no episodes of hypotension. ABG with CO2 retention and mild acidosis. Lactic acid was okay. Dr. Jenkins was contacted initially and will take the patient back today to correct the malposition stent. I discussed case with Dr. Jenkins. Also discussed case with anesthesia given his current respiratory status the plan is for ET tube placement intraoperatively and to leave him on the mechanical ventilator overnight. 10/13 Did well overnight. Good weaning parameters this morning and awake on the vent. Has sore throat and pain at surgical site otherwise unremarkable review of systems. 10/14 Did not sleep well last night. Became confused after the oxycodone last night. Doing better this morning. Accompanied by family. Has occasional cough nonproductive. No shortness of breath. Surgical site discomfort 10/15 confusion overnight. Better this morning. Suspect Ambien as major contributor, DC. Stable for discharge, family will be staying with him and monitoring him closely *Sepsis 2/2 source: -bandemia resolved -now afebrile *Malpositioned left ureteral stent w/small urinoma: s/p repositioning of stent (10/12) *Acute hypoxic/hypercapnic respiratory failure: multifactorial atelectasis, Narcotics + underlying AMY/COPD -left intubated o/n after surgery, extubated morning of 10/13 -now on 1L NC w/sats 94-96, *?Aspiration vs more likely atelectasis: f/u cxr with improved atelectasis/infiltrate improving *Encephalopathy, 2/2 above: Improved but then worsens overnight and clears during day -CT brain w/mild generalized atrophy -given the reported h/o "Memory issues" suspect mild Dementia compounded by recent acute illness/hospitalization + medications: *COPD (2L during day and 3L@night): 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 Jenkins for -Zosyn -BC/UC pending -attempt to reduce narcotics, oxy switched to tramadol, trial of NSAID and robaxin/lidoderm -nebs, IS -d/c ambien -Smoking cessation counseling -DC Ambien, try to avoid Ativan. We will switch to melatonin plus or minus Benadryl for sleep at night -ppx: Heparin/H2 Discharge diagnosis: Sepsis secondary to sourceMalpositioned left ureteral stent Secondary discharge diagnosis: Acute hypoxic hypercapnic respite failure encephalopathy COPD obstructive sleep apnea diastolic heart failure hypertension GERD memory issues tobacco abuse anxiety - Time Spent with Patient Total time spent providing and/or coordinating discharge services: Greater than 30 minutes Medical - DS: Exam - Constitutional Vitals: Vital Signs Temp Pulse Pulse Resp BP Pulse Ox 10/15/18 08:00 98.7 F 77 18 150/78 95 10/15/18 07:10 77 16 10/15/18 07:00 95 10/15/18 06:59 95 10/15/18 05:49 98.1 F 72 20 136/85 95 10/14/18 23:09 98.1 F 63 20 150/83 94 10/14/18 19:38 74 20 10/14/18 19:20 98.4 F 68 22 153/86 96 10/14/18 16:00 99.2 F H 68 18 135/80 96 10/14/18 13:10 82 20 10/14/18 12:00 98.4 F 66 18 130/71 96 10/14/18 11:41 90 Intake and Output 10/14/18 10/15/18 10/15/18 21:59 05:59 13:59 Intake Total 650 50 50 Output Total 2500 850 525 Balance -4476 -978 -526 Intake: IV 550 50 50 Zosyn 3.375 gm In Dextrose 5% 50 50 50 in Water 50 ml @ 100 mls/hr IV Q6H [facility] Rx#:[id number] Oral 100 Output: Urine Catheter Amount 2250 850 525 Uretheral (Hernandez) 525 Void Amount 250 Other: Meal Dinner Percent of Meal Consumed 75% Feeding Ability Independent Urine Appearance Clear Clear Urine Color [employer] ([employer]andez) [employer] Urine Odor Strong Weight 79.832 kg Medical - DS: Data Labs on day of discharge: Labs from last 24 hours 10/15/18 05:49 Sodium 144 Potassium 3.6 Chloride 104 Carbon Dioxide 30 Anion Gap 10.0 BUN 12 Creatinine 0.8 GFR Calculation 91 Glucose 101 Uric Acid 3.6 Calcium 8.9 Phosphorus 3.5 Magnesium 1.6 Total Bilirubin 0.6 Direct Bilirubin < 0.2 GGT 29 AST 15 ALT 11 Alkaline Phosphatase 57 Lactate Dehydrogenase 201 Total Protein 5.4 L Albumin 2.9 L Globulin 2.5 Albumin/Globulin Ratio 1.2 Triglycerides 136 Preliminary micro results at discharge 10/12/18 09:10 Blood Culture - Preliminary Blood 10/12/18 09:20 Blood Culture - Preliminary Blood Medical - DS: A/P - Patient/Caregiver Discharge Instructions Activity: increase activity as tolerated Diet: Regular Diet - Follow up Plan Follow up with: Clayton Lindsey ARNP [Primary Care Provider] - Robert Jenkins MD [Physician] - 10/21/18 9:30 am Disposition: Home, Self-Care Prognosis: Fair Rehab Potential: Fair Overall status at discharge: patient is back to baseline Medical - DS: Qual - VTE Deep Vein Thrombosis/Pulmonary Embolism Present on Admission: No
[2018-10-15] MEDS ORDERED: NICOTINE 21 MG PATCH TOPICAL SCH (10:00)
== END 2018-10-15 11:55 | disposition home or self-care (01) | DRG 853 ==
LOC: ED 08:32 → SUR 17:46 → ICU 18:51 → MEDSUR 10-14 11:20
PROVIDERS: ATTEND Internal Medicine